=== PATIENT | male | born 1960 | race African-American/Black ===

== ENCOUNTER 2016-10-24 05:55 | Inpatient (IN) | payer BC ==
[2016-10-21 15:43] LABS: BASOPHILS 0.3 %; BASOPHILS ABSOLUTE 0.03 10/3/uL (0.0-0.16); EOSINOPHILS 1.1 %; EOSINOPHILS ABSOLUTE 0.12 10/3/uL (0.0-0.53); HEMATOCRIT 39.7 % (40.0-51.0); HEMOGLOBIN 13.4 g/dL (13.6-17.8); IMMATURE GRANULOCYTES 0.4 %; IMMATURE GRANULOCYTES ABSOLUTE 0.04 10/3/uL (0.0-0.11); LYMPHOCYTES 15.2 %; LYMPHOCYTES ABSOLUTE 1.64 10/3/uL (0.67-4.30); MEAN CORPUS HGB CONC 33.8 g/dL (32.0-36.0); MEAN CORPUSCULAR HEMOGLOB 31.2 pg (26.0-34.0); MEAN CORPUSCULAR VOLUME 92.3 fL (80-100); MONOCYTES 4.6 %; NEUTROPHILS 78.4 %; NEUTROPHILS ABSOLUTE 8.47 10/3/uL (2.02-8.40); PLATELET COUNT 365 10/3/uL (150-400); RBC DISTRIBUTION WIDTH 14.7 % (12.0-16.0); WHITE BLOOD CELLS 10.8 10/3/uL (4.5-10.5)
[2016-10-21 15:45] LABS: MANUAL DIFF NO %
[2016-10-21 15:46] LABS: PARTIAL THROMBO TIME 28.7 SEC (22.5-37.2); PROTIME (NOT ORD) 13.4 SEC (12.0-14.5)
[2016-10-21 16:01] LABS: A/G RATIO 0.9 (0.7-1.9); ALBUMIN 3.9 G/DL (3.5-5.0); CALCIUM, SERUM 9.7 MG/DL (8.5-10.4); CHLORIDE, SERUM 101 MMOL/L (96-112); CO2 (CARBON DIOXIDE) 28 MMOL/L (24-34); CREATININE 1.06 MG/DL (0.70-1.30); GFR AFRICAN AMERICAN 89 ML/MIN (>=60); GFR NON AFRICAN AMERICAN 77 ML/MIN (>=60); GLOBULIN 4.4 G/DL (2.5-4.1); GLUCOSE, SERUM 128 MG/DL (60-99); POTASSIUM, SERUM 3.9 MMOL/L (3.5-5.3); SGOT(AST) 14 U/L (5-40); SGPT(ALT) 46 U/L (5-65); SODIUM, SERUM 137 MMOL/L (135-148); TOTAL BILIRUBIN 0.4 MG/DL (0-1.2); TOTAL PROTEIN 8.3 G/DL (6.0-8.5)
[2016-10-21 16:02] LABS: ALKALINE PHOSPHATASE 106 U/L (45-117); BUN (BLOOD UREA NITROGEN) 17 MG/DL (6-23)
--- NOTE | ~2016-10-24 | PREOPHP ---
PreOp History and Physical [address] [place]. 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 The patient was recently hospitalized for pneumonia. During that hospitalization, he underwent a CT scan of the chest and abdomen, which showed a large gastric mass. Further workup shows this to be a distal gastric GIST tumor. There was no evidence for metastatic disease. This tumor was associated with upper GI bleeding at the time of his admission. The patient comes now for partial gastrectomy for removal of this large gastric GIST tumor. PAST MEDICAL HISTORY: 1. Hypertension. 2. Arthritis. 3. History of sepsis with legionnaire pneumonia. 4. History of upper GI bleeding related GIST tumor. MEDICATIONS: Hydrochlorothiazide, prednisone, amlodipine, Exforge, hydrocodone, hydroxychloroquine. PAST SURGICAL HISTORY: None. FAMILY HISTORY: Positive for diabetes and heart disease. SOCIAL HISTORY: The patient has history of tobacco abuse. He has a history of alcohol use. ALLERGIES: NONE. REVIEW OF SYSTEMS: The patient's 14-point review of systems otherwise unremarkable. OBJECTIVE/PHYSICAL EXAMINATION: GENERAL: This is a large somewhat obese male, in no acute distress. He is alert and oriented x3. VITAL SIGNS: Blood pressure 111/79, pulse 90, temp 97.8. HEENT: Unremarkable. CRANIAL NERVES: 2 through 12 are normal. LUNGS: Clear. CARDIAC: Normal. ABDOMEN: Soft and nontender. EXTREMITIES: Normal. LABORATORY DATA: CT scan of the abdomen and pelvis shows a large perigastric mass. EUS with biopsy shows this to be a gastrointestinal stromal cell tumor. The patient had a lesion of concern in the left lobe of the liver of unclear etiology. CT directed biopsy of this lesion is pending at this time. PreOp History and Physical [address] [place]. [address] NAME: LAURIE VOGEL : 56 STATUS : PRE IN PAT#: [id number] AGE: 56 ADM/REG DATE : MR#: [id number] REPORT SERV DATE: 10/24/16 DICTATED BY: STEPHANIE LEE III DATE: 10/08/16 REPORT STATUS : Draft TRANSCRIBED BY: ROSELYN DATE: 10/08/16 ASSESSMENT: 1. 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 2. Hypertension. 3. Arthritis, steroid dependent. 4. History of sepsis with legionnaires pneumonia. 5. History of previous upper gastrointestinal bleeding. PLAN: The patient comes to the operating room now for partial gastrectomy for removal of this large gastric tumor. This procedure, the risks, benefits, and alternatives, including not limited to the risk for bleeding, infection, enterotomy, injury to abdominal structure, postop small bowel obstruction, ileus, incisional hernia, dehiscence, anastomotic leak, resulting in peritonitis, sepsis, and , duodenal stump leak resulting in peritonitis, sepsis, and , and requiring reoperation, gastric outlet obstruction, gastroparesis, and unforeseen complications including deep venous thrombosis, pulmonary embolus, myocardial infarction, stroke, pneumonia, and , have been fully and completely explained to the patient's family at length on several occasions prior to surgery. The fact that this is a major operation with risk for major morbidity and mortality has been explained. The expected length of recovery has been explained. The patient's questions have been answered. He fully and completely understands the risks and agrees to surgery as planned. ANG/ROSELYN Stephanie Lee III, M.D. / [id number]
--- NOTE | ~2016-10-24 | DS ---
Discharge Summary [facility] [address] [facility] [place]. [address] NAME: LAURIE VOGEL : 56 STATUS : DIS IN PAT#: [id number] AGE: 56 ADM/REG DATE : 10/24/16 MR#: [id number] REPORT SERV DATE: 11/06/16 DICTATED BY: STEPHANIE MOCK III DATE: 11/05/16 REPORT STATUS : Draft TRANSCRIBED BY: ROSELYN DATE: 11/05/16 Data Collection from hospitalization DISCHARGE DIAGNOSIS(ES): 1. 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 2. Hypertension. 3. Arthritis. 4. History of sepsis with Legionnaires pneumonia. CONSULTATIONS: None. PROCEDURES PERFORMED: Partial distal gastrectomy with Billroth II anastomosis, 10/24/2016. PATHOLOGY: , distal gastrectomy; gastrointestinal stromal tumor (GIST). MEDICATIONS: Norvasc 10 mg daily; Exforge 1 daily; hydrochlorothiazide 25 mg daily; Diovan 320 mg daily; prednisone 10 mg every morning; multivitamin without minerals 1 daily; Percocet 7.5/325 mg, one 3 times daily as needed. CONDITION AT DISCHARGE: Upon discharge, he did appear to be doing well and had no complaints. DISPOSITION: He was discharged home to continue a soft post gastrectomy diet with activity as discussed. He is to follow up with me in the office in two weeks and is to call for the appointment. HOSPITAL COURSE: This 56-year-old male was recently hospitalized for pneumonia. During the hospitalization, he underwent a CT scan of the chest and abdomen which showed a large gastric mass. Further workup showed this to be a distal gastric GIST tumor. There was no evidence for metastatic disease. This tumor was associated with upper GI bleeding at the time of his admission. He was now admitted for partial gastrectomy for removal of this large gastric GIST tumor and further evaluation. Upon admission to the hospital, he was then been taken to the operating room where he did undergo the above procedure. He tolerated this well and was transferred to the recovery room. On postop day 1, he was alert and comfortable and had no complaints noted. He did have good pain control and did appear to be stable postoperatively. On postop day 2, he had remained in stable condition and had no complaints. He was still n.p.o. with the NG tube in place. On postop day 3, his NG tube was placed to gravity drain. The So catheter and epidural were both removed. His incision looked good. On postop day 4, his NG tube was removed and he was placed on a clear liquid diet. He was afebrile and his vital signs had remained stable. On postop day 5, he tolerated a clear liquid diet and his diet was advanced further to a full liquid diet. His IV fluids were decreased and [employer] was discontinued. He had been placed on oral pain medications. CONDITION AT DISCHARGE: He did remain in stable condition and as he continued to do well, he was then discharged on 10/30/2016 with the above instructions. Discharge Summary [address] [place]. [address] NAME: LAUIRE VOGEL : 56 STATUS : DIS IN PAT#: [id number] AGE: 56 ADM/REG DATE : 10/24/16 MR#: [id number] REPORT SERV DATE: 11/06/16 DICTATED BY: STEPHANIE MOCK III DATE: 11/05/16 REPORT STATUS : Draft TRANSCRIBED BY: ROSELYN DATE: 11/05/16 Information collected by: [place] [employer] I submit the above information as my discharge summary. PATRICIA/ROSELYN Stephanie Mock III, M.D. / [id number] CC: Austin Schulte III, M.D.
--- NOTE | ~2016-10-24 | OP ---
Record Of Operation [facility] [address] [place]. 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 PROCEDURE: Partial distal gastrectomy with Billroth II anastomosis. SURGEON: Stephanie Mock M.D. ANESTHESIA: General with intubation. COMPLICATIONS: None. ESTIMATED BLOOD LOSS: 50 mL. SPECIMENS: Distal stomach or antrum and pylorus. DRAINS: Kwaku-Smith in abdominal cavity and Tippecanoe in subcutaneous tissue. LAP AND SPONGE COUNT: Correct x3. BRIEF HISTORY: This 56-year-old male was recently diagnosed with a GIST tumor of the distal stomach. This was a very large, exophytic tumor. They have been discovered when the patient has been emergently admitted with evidence for hematemesis. His workup showed a questionable lesion in the left lobe of the liver which was biopsied under CT direction and found to be a benign hemangioma. There was no evidence for disease elsewhere and no evidence for metastatic disease. It was felt that laparotomy with partial gastrectomy was indicated. This procedure, the risks, benefits, and alternatives, including not limited to the risk for bleeding, infection, enterotomy, injury to any abdominal structure, postop small bowel obstruction, ileus, incisional hernia, dehiscence, anastomotic leak resulting in peritonitis, sepsis, and , and requiring reoperation, gastroparesis, gastric bowel obstruction, duodenal stump leak resulting in peritonitis, sepsis, and , and unforeseen complications including deep venous thrombosis, pulmonary embolus, myocardial infarction, stroke, pneumonia, and , were fully and completely explained to the patient and his family carefully prior to surgery. The fact that this was a major operation with risk for major morbidity and mortality was explained as well as expected length of recovery. The patient had questions, which were answered. He fully understood the risks and agreed to the surgery as planned. FINDINGS: The patient had a large GIST tumor of the distal stomach. This was a large exophytic mass that also involved the wall of the stomach. There was no evidence for Record Of Operation [place] [address] [place]. [address] NAME: LAURIE VOGEL : 56 STATUS : ADM IN PAT#: [id number] AGE: 56 ADM/REG DATE : 10/24/16 MR#: [id number] REPORT SERV DATE: 10/24/16 DICTATED BY: STEPHANIE MOCK III DATE: 10/24/16 REPORT STATUS : Draft TRANSCRIBED BY: MODL DATE: 10/24/16 metastatic disease. DESCRIPTION OF PROCEDURE: After being properly identified and after discussing risks of surgery with the patient and his family again in the preoperative area, he was taken to the operating room and placed in the supine position on the operating room table. General anesthesia was administered. He was intubated without difficulty. A So catheter and NG tube were inserted. The abdomen was prepped and draped sterilely in the usual fashion. After an appropriate "time-out" per JCAHO standards, a midline incision was made from just beneath the xiphoid process to above the umbilicus. The incision was continued through the subcutaneous tissue. Hemostasis was controlled with cautery. The incision was continued through the fascia. The abdominal cavity was entered. The abdomen was explored. There was an extremely large, exophytic soft mass arising from the distal antrum. This was not invading any structures. There was a palpable mass associated with this in the wall of the stomach in the antrum. The portion of the tumor which was within the wall of the stomach was fairly large and it was felt that it was too large to allow for a safe wedge resection in the narrow part of the antrum where it was located. It was my judgment that a wedge resection would result in a significant narrowing and possible obstruction of the stomach. For this reason, it was felt that distal gastrectomy would be required for adequate removal of the tumor with clear margins. It should be noted that there was no evidence for peritoneal implants or metastatic disease. In particular, the liver was normal. The stomach was mobilized. Using a Harmonic Scalpel, the gastrocolic ligament was divided, beginning in the midbody of the stomach proximally and continuing distally to just beyond the pylorus. The similar portion of the lesser curve of the stomach was exposed by dividing the lesser omentum along the center and length of the stomach. The stomach was then divided transversely with the CALIN stapler at the junction of the antrum and the body of the stomach, proximal to the tumor. The stomach was then divided distally, distal to the tumor and just beyond the pylorus, with a TA60 stapler. The specimen was thus removed and sent to pathology and interpreted as containing the tumor with clear margins. The duodenal stump was oversewn carefully with interrupted 3-0 silk sutures. This resulted in good inversion of the stump. We then performed end gastric to side jejunal anastomosis in a Billroth II fashion. The proximal jejunum just beyond the ligament of Treitz was identified. This jejunum was brought through a window made in the avascular portion of mesentery to the transverse colon. A two-layer anastomosis was performed. This was done using interrupted 3-0 silk sutures on the outer posterior layer, running 3-0 chromic suture on the inner layer, and interrupted 3- 0 silk sutures on the outer anterior layer. Upon completion of this anastomosis, it was widely patent to palpation. It was not twisted or kinked in any way. It was not under any tension. The lesser curve of the stomach which was not incorporated within the anastomosis was oversewn with interrupted 3-0 silk sutures. Anastomosis was some 4-5 cm in length. The anastomosis was secured to the mesentery of the transverse colon with interrupted 3-0 silk sutures. Great care was taken to make certain that the afferent and efferent limbs were not twisted or kinked in any way. The upper abdominal cavity was irrigated copiously with saline. Hemostasis was assured. Record Of Operation [facility] [address] [facility] [place]. [address] NAME: LAURIE VOGEL : 56 STATUS : ADM IN [facility]#: [id number] AGE: 56 ADM/REG DATE : 10/24/16 MR#: [id number] REPORT SERV DATE: 10/24/16 DICTATED BY: STEPHANIE MOCK III DATE: 10/24/16 REPORT STATUS : Draft TRANSCRIBED BY: MODL DATE: 10/24/16 Evicel fibrin glue was placed over the duodenal stump. A Kwaku-Smith drain was brought through a separate stab wound to the right of the incision and placed near the duodenal stump. The fascia was closed with a running looped #1 PDS suture after assuring hemostasis in all areas. The subcutaneous tissue was closed with running 3-0 chromic suture over a Tippecanoe drain which was brought out through the inferior aspect of the incision. The skin was closed with running subcuticular 4-0 Monocryl stitch. Dressings were applied. Anesthesia was reversed and the patient taken to the recovery room in stable condition. He tolerated the procedure well. His family was informed of the results of surgery. The patient will remain in the hospital for postoperative care. RHJ/MODL Stephanie Mock III, M.D. / [id number] CC: Austin Schulte III, MD Bruce Johnson, M.D.
[~2016-10-24 05:55] MED LIST: EXFORGE PO; HUMIRA PEN SC; HYDROCHLOROT25 MG PO; IRON PO; LEVAQUIN750 MG PO; MULTIVITAMI1 PO; NORCO1 TA2 PO; P10 PO; PLAQ200B PO; TAMIFLU PO
[2016-10-25 06:03] LABS: BASOPHILS 0.1 %; BASOPHILS ABSOLUTE 0.01 10/3/uL (0.0-0.16); EOSINOPHILS 0.1 %; EOSINOPHILS ABSOLUTE 0.01 10/3/uL (0.0-0.53); HEMATOCRIT 35.8 % (40.0-51.0); HEMOGLOBIN 12.1 g/dL (13.6-17.8); IMMATURE GRANULOCYTES 0.2 %; IMMATURE GRANULOCYTES ABSOLUTE 0.03 10/3/uL (0.0-0.11); LYMPHOCYTES 12.3 %; LYMPHOCYTES ABSOLUTE 1.89 10/3/uL (0.67-4.30); MEAN CORPUS HGB CONC 33.8 g/dL (32.0-36.0); MEAN CORPUSCULAR VOLUME 91.8 fL (80-100); MEAN PLATELET VOLUME 9.7 fL (9.2-13.0); MONOCYTES 8.4 %; MONOCYTES ABSOLUTE 1.29 10/3/uL (0.21-1.20); NEUTROPHILS 78.9 %; NEUTROPHILS ABSOLUTE 12.09 10/3/uL (2.02-8.40); PLATELET COUNT 289 10/3/uL (150-400)
[2016-10-25 06:17] LABS: A/G RATIO 0.8 (0.7-1.9); ALBUMIN 3.2 G/DL (3.5-5.0); BUN (BLOOD UREA NITROGEN) 16 MG/DL (6-23); CALCIUM, SERUM 8.8 MG/DL (8.5-10.4); CHLORIDE, SERUM 103 MMOL/L (96-112); CO2 (CARBON DIOXIDE) 26 MMOL/L (24-34); CREATININE 0.95 MG/DL (0.70-1.30); GFR AFRICAN AMERICAN 102 ML/MIN (>=60); GFR NON AFRICAN AMERICAN 88 ML/MIN (>=60); GLOBULIN 4.1 G/DL (2.5-4.1); GLUCOSE, SERUM 134 MG/DL (60-99); POTASSIUM, SERUM 4.2 MMOL/L (3.5-5.3); SGOT(AST) 11 U/L (5-40); SGPT(ALT) 35 U/L (5-65); SODIUM, SERUM 141 MMOL/L (135-148); TOTAL BILIRUBIN 0.4 MG/DL (0-1.2); TOTAL PROTEIN 7.3 G/DL (6.0-8.5)
[2016-10-25 06:20] LABS: MANUAL DIFF NO %; WHITE BLOOD CELLS 15.3 10/3/uL (4.5-10.5)
[2016-10-25 06:21] LABS: ALKALINE PHOSPHATASE 81 U/L (45-117)
[2016-10-26 07:43] LABS: BUN (BLOOD UREA NITROGEN) 15 MG/DL (6-23); CHLORIDE, SERUM 103 MMOL/L (96-112); CO2 (CARBON DIOXIDE) 27 MMOL/L (24-34); CREATININE 1.01 MG/DL (0.70-1.30); GFR AFRICAN AMERICAN 95 ML/MIN (>=60); GFR NON AFRICAN AMERICAN 82 ML/MIN (>=60); GLUCOSE, SERUM 109 MG/DL (60-99); SODIUM, SERUM 140 MMOL/L (135-148)
[2016-10-26 07:44] LABS: BASOPHILS 0.2 %; BASOPHILS ABSOLUTE 0.02 10/3/uL (0.0-0.16); EOSINOPHILS 0.7 %; EOSINOPHILS ABSOLUTE 0.09 10/3/uL (0.0-0.53); HEMATOCRIT 34.9 % (40.0-51.0); HEMOGLOBIN 11.5 g/dL (13.6-17.8); IMMATURE GRANULOCYTES 0.2 %; IMMATURE GRANULOCYTES ABSOLUTE 0.03 10/3/uL (0.0-0.11); LYMPHOCYTES 18.9 %; LYMPHOCYTES ABSOLUTE 2.37 10/3/uL (0.67-4.30); MEAN CORPUSCULAR HEMOGLOB 30.7 pg (26.0-34.0); MEAN CORPUSCULAR VOLUME 93.3 fL (80-100); MEAN PLATELET VOLUME 9.8 fL (9.2-13.0); MONOCYTES 7.9 %; MONOCYTES ABSOLUTE 0.99 10/3/uL (0.21-1.20); NEUTROPHILS 72.1 %; NEUTROPHILS ABSOLUTE 9.02 10/3/uL (2.02-8.40); PLATELET COUNT 264 10/3/uL (150-400); RBC DISTRIBUTION WIDTH 15.3 % (12.0-16.0); RED CELL COUNT 3.74 10/6/uL (4.7-6.1); WHITE BLOOD CELLS 12.5 10/3/uL (4.5-10.5)
[2016-10-26 07:45] LABS: MANUAL DIFF NO %
[2016-10-27 06:26] LABS: BASOPHILS 0.1 %; BASOPHILS ABSOLUTE 0.01 10/3/uL (0.0-0.16); EOSINOPHILS 1.8 %; EOSINOPHILS ABSOLUTE 0.18 10/3/uL (0.0-0.53); HEMATOCRIT 34.8 % (40.0-51.0); HEMOGLOBIN 11.5 g/dL (13.6-17.8); IMMATURE GRANULOCYTES 0.1 %; IMMATURE GRANULOCYTES ABSOLUTE 0.01 10/3/uL (0.0-0.11); LYMPHOCYTES 19.9 %; LYMPHOCYTES ABSOLUTE 1.98 10/3/uL (0.67-4.30); MANUAL DIFF NO %; MEAN CORPUSCULAR HEMOGLOB 30.7 pg (26.0-34.0); MEAN PLATELET VOLUME 10.1 fL (9.2-13.0); NEUTROPHILS 69.1 %; NEUTROPHILS ABSOLUTE 6.88 10/3/uL (2.02-8.40); PLATELET COUNT 282 10/3/uL (150-400); RBC DISTRIBUTION WIDTH 15.1 % (12.0-16.0); RED CELL COUNT 3.74 10/6/uL (4.7-6.1)
[2016-10-27 06:39] LABS: BUN (BLOOD UREA NITROGEN) 16 MG/DL (6-23); CALCIUM, SERUM 9.2 MG/DL (8.5-10.4); CHLORIDE, SERUM 101 MMOL/L (96-112); CO2 (CARBON DIOXIDE) 27 MMOL/L (24-34); CREATININE 0.98 MG/DL (0.70-1.30); GFR AFRICAN AMERICAN 98 ML/MIN (>=60); GFR NON AFRICAN AMERICAN 85 ML/MIN (>=60); GLUCOSE, SERUM 109 MG/DL (60-99); SODIUM, SERUM 139 MMOL/L (135-148)
[2016-10-28 08:18] LABS: HEMATOCRIT 35.4 % (40.0-51.0); HEMOGLOBIN 12.2 g/dL (13.6-17.8); MEAN CORPUS HGB CONC 34.5 g/dL (32.0-36.0); MEAN CORPUSCULAR HEMOGLOB 31.4 pg (26.0-34.0); MEAN CORPUSCULAR VOLUME 91.2 fL (80-100); MEAN PLATELET VOLUME 9.6 fL (9.2-13.0); PLATELET COUNT 289 10/3/uL (150-400); RBC DISTRIBUTION WIDTH 14.5 % (12.0-16.0); RED CELL COUNT 3.88 10/6/uL (4.7-6.1); WHITE BLOOD CELLS 10.8 10/3/uL (4.5-10.5)
[2016-10-28 08:19] LABS: MANUAL DIFF YES %
[2016-10-28 08:36] LABS: BUN (BLOOD UREA NITROGEN) 13 MG/DL (6-23); CHLORIDE, SERUM 101 MMOL/L (96-112); CO2 (CARBON DIOXIDE) 26 MMOL/L (24-34); CREATININE 0.92 MG/DL (0.70-1.30); GFR AFRICAN AMERICAN 106 ML/MIN (>=60); GFR NON AFRICAN AMERICAN 91 ML/MIN (>=60); GLUCOSE, SERUM 113 MG/DL (60-99); SODIUM, SERUM 139 MMOL/L (135-148)
[2016-10-28 08:40] LABS: BAND NEUTROPHILS 4 %; LYMPHOCYTES 24 %; LYMPHOCYTES ABSOLUTE (CALC) 2.59 10/3/uL (0.67-4.30); MONOCYTES 6 %; MONOCYTES ABSOLUTE (CALC) 0.65 10/3/uL (0.21-1.20); NEUTROPHILS ABSOLUTE (CALC) 7.56 10/3/uL (2.02-8.40); PLATELET ESTIMATE ADQ (ADEQUATE); RBC MORPHOLOGY NORM (NORMAL); SEGMENTED NEUTROPHIL (0) 66 %; TOTAL NUCLEATED CELLS 100
[2016-10-29 06:09] LABS: BASOPHILS 0.2 %; BASOPHILS ABSOLUTE 0.02 10/3/uL (0.0-0.16); EOSINOPHILS 2.2 %; EOSINOPHILS ABSOLUTE 0.21 10/3/uL (0.0-0.53); HEMATOCRIT 35.5 % (40.0-51.0); HEMOGLOBIN 12.1 g/dL (13.6-17.8); IMMATURE GRANULOCYTES 0.2 %; IMMATURE GRANULOCYTES ABSOLUTE 0.02 10/3/uL (0.0-0.11); LYMPHOCYTES 22.5 %; LYMPHOCYTES ABSOLUTE 2.18 10/3/uL (0.67-4.30); MEAN CORPUS HGB CONC 34.1 g/dL (32.0-36.0); MEAN CORPUSCULAR HEMOGLOB 31.2 pg (26.0-34.0); MEAN CORPUSCULAR VOLUME 91.5 fL (80-100); MEAN PLATELET VOLUME 9.6 fL (9.2-13.0); MONOCYTES 7.5 %; MONOCYTES ABSOLUTE 0.73 10/3/uL (0.21-1.20); NEUTROPHILS 67.4 %; NEUTROPHILS ABSOLUTE 6.55 10/3/uL (2.02-8.40); PLATELET COUNT 294 10/3/uL (150-400); RBC DISTRIBUTION WIDTH 14.5 % (12.0-16.0); RED CELL COUNT 3.88 10/6/uL (4.7-6.1); WHITE BLOOD CELLS 9.7 10/3/uL (4.5-10.5)
[2016-10-29 06:13] LABS: MANUAL DIFF NO %
[2016-10-29 06:24] LABS: BUN (BLOOD UREA NITROGEN) 13 MG/DL (6-23); CHLORIDE, SERUM 104 MMOL/L (96-112); CO2 (CARBON DIOXIDE) 26 MMOL/L (24-34); CREATININE 0.99 MG/DL (0.70-1.30); GFR AFRICAN AMERICAN 97 ML/MIN (>=60); GFR NON AFRICAN AMERICAN 84 ML/MIN (>=60); GLUCOSE, SERUM 117 MG/DL (60-99); SODIUM, SERUM 139 MMOL/L (135-148)
[2016-10-30] MEDS ORDERED: PERCOCET 7.5/321 TAB PO (07:55)
== END 2016-10-30 12:50 | disposition home or self-care (01) | DRG 982 ==
LOC: SDC/OF 05:55 → PACU 09:56 → 5SO 12:16
PROVIDERS: Surgery
PROC: 0D160ZA Bypass Stomach to Jejunum, Open Approach (ICD-10-PCS; 2016-10-24)
PROC: 00HU33Z Insertion of Infusion Device into Spinal Canal, Percutaneous Approach (ICD-10-PCS; 2016-10-24)
PROC: 0DB60ZZ Excision of Stomach, Open Approach (ICD-10-PCS; principal; 2016-10-24 07:45)
DX: D21.4 Benign neoplasm of connective and other soft tissue of abdomen (principal); K92.2 Gastrointestinal hemorrhage, unspecified; I10 Essential (primary) hypertension; M19.90 Unspecified osteoarthritis, unspecified site; Z79.899 Other long term (current) drug therapy; Z79.52 Long term (current) use of systemic steroids; Z83.3 Family history of diabetes mellitus; Z82.49 Family history of ischemic heart disease and other diseases of the circulatory system; Z87.891 Personal history of nicotine dependence; Z23 Encounter for immunization
CPT/HCPCS: 36415; 71020; 80048; 80053; 85025; 85610; 85730; 86850; 86900; 86901; 88309; 88341; 88342; 90686; 93005; 97161-GP; A9270-GY; C9113; G0008; J0690; J1720; J2250; J2370; J2710; J2930; J3010

== ENCOUNTER 2016-11-01 12:26 | Inpatient (IN) | payer BC ==
--- NOTE | ~2016-11-01 | HP ---
History And Physical [address] [place]. [address] NAME: LAURIE VOGEL : 56 STATUS : ADM IN [facility]#: [id number] AGE: 56 ADM/REG DATE : 11/01/16 MR#: [id number] REPORT SERV DATE: 11/01/16 DICTATED BY: STEPHANIE MOCK III DATE: 11/01/16 REPORT STATUS : Draft TRANSCRIBED BY: MODTelma DATE: 11/01/16 DATE OF ADMISSION: 11/01/2016 CONTINUATION PAST MEDICAL HISTORY: 1. As above. 2. Hypertension. 3. Arthritis, steroid dependent. 4. History of previous sepsis with Legionella pneumonia. PAST SURGICAL HISTORY: None. MEDICATIONS: Hydrochlorothiazide, prednisone, amlodipine, Exforge, hydrocodone, and hydroxychloroquine. FAMILY HISTORY: Positive for diabetes and heart disease. SOCIAL HISTORY: The patient has a history of tobacco abuse. He has a history of alcohol use. ALLERGIES: NONE. REVIEW OF SYSTEMS: The patient's 14-point review of systems is otherwise unremarkable except for inability to urinate, abdominal pain and distention. PHYSICAL EXAMINATION: GENERAL: This is a male who appears acutely ill. He is alert and oriented x3. He is somewhat dyspneic. VITAL SIGNS: Blood pressure 108/59, temperature 98.2, and pulse 120. HEENT: Unremarkable. Cranial nerves II through XII are normal. LUNGS: Remarkable for decreased breath sounds at the bases. ABDOMEN: Distended with some mild tenderness around the incision. EXTREMITIES: Normal. LABORATORY DATA: CT scan and pelvis which I reviewed shows a small amount of fluid around the stomach in the left upper quadrant. I reviewed this with Dr. Gary Guy and Dr. Stephanie Banuelos of Radiology. They both feel this is consistent with the patient's recent gastrectomy with no evidence for anastomotic leak. Nevertheless, these findings of concern to me given the patient's clinical condition. The patient's white blood cell count is 9.7 and hematocrit 38.2. Electrolytes are remarkable for marked elevation of his creatinine at 5.7, which is a marked increase from three days ago on 10/29/2016 at which time his creatinine was 0.9. BUN of 65. History And Physical [address] [place]. [address] NAME: LAURIE VOGEL : 56 STATUS : ADM IN PAT#: [id number] AGE: 56 ADM/REG DATE : 11/01/16 MR#: [id number] REPORT SERV DATE: 11/01/16 DICTATED BY: STEPHANIE MOCK III DATE: 11/01/16 REPORT STATUS : Draft TRANSCRIBED BY: ROSELYN DATE: 11/01/16 ASSESSMENT: 1. A 56-year-old male with evidence for tachycardia and tachypnea, possibly secondary to sepsis. 2. Acute renal insufficiency of unclear etiology. 3. Status post recent distal gastrectomy for a large gastrointestinal stromal tumor, with the patient being discharged home in good condition. 4. Hypotension. 5. Steroid-dependent arthritis. 6. History of previous legionnaires pneumonia. PLAN: The patient appears to be acutely ill with tachypnea and tachycardia and hypotension. I plan to transfer him to the intensive care unit for IV fluids. Even though the perigastric fluid appears to be benign radiographically, I have requested a CT-directed aspiration to rule out possibility of infected fluid. So catheter will be placed and I have asked Dr. Stephanie Morales of Pulmonology to see the patient in consultation for help with his management. Although his abdomen is distended, he does not have definite evidence for peritonitis or indication for acute surgical intervention. However, the patient is acutely ill. I discussed this with the patient and his family. Their questions were answered. They understand and agree to this as planned. RHJ/ROSELYN Stephanie Mock III, M.D. / [id number] CC: Austin Schulte III, M.D.
--- NOTE | ~2016-11-01 | CN ---
Consultation Report [facility] [address] [place] [place]. [address] NAME: LAURIE VOGEL : 56 STATUS : ADM IN PAT#: [id number] AGE: 56 ADM/REG DATE : 11/01/16 MR#: [id number] REPORT SERV DATE: 11/02/16 DICTATED BY: STEPHANIE MORALES DATE: 11/01/16 REPORT STATUS : Draft TRANSCRIBED BY: MODL DATE: 11/01/16 CONSULTATION DATE OF CONSULTATION: One hour critical care time. The patient is a 56-year-old male, one week ago underwent surgery for a GIST tumor in the abdomen, returns today after visiting his doctor's office with appearance of sepsis and possible fluid collection in the abdomen. CT did not reveal perforation, but did reveal fluid collection. Of note, his creatinine has increased to 5 since this hospital stay. His blood pressure is 95/70, he is getting fluid resuscitation as we speak. A CT scan also showed right lower lobe consolidation and left upper lobe atelectasis and fluid collection, left lower quadrant. PAST MEDICAL HISTORY: Hypertension, rheumatoid arthritis, recent influenza A, chronic pain and anemia. The rest of the history, upper GI bleed related to GIST tumor 08/03/2016, reason history of Legionella pneumonia with sepsis, history of atrial flutter associated with influenza A, acute kidney injury at that time, history of mild rhabdomyolysis resolved. REVIEW OF SYSTEMS: As noted above. Otherwise, negative and noncontributory. FAMILY HISTORY: Noncontributory. PHYSICAL EXAMINATION: VITAL SIGNS: On examination, today his pressure is 85/70, pulse is approximately 100, temperature 99. GENERAL: The patient is awake, alert, but feels weak. HEENT: Head is normocephalic. Sclerae and conjunctivae are clear. NECK: Supple. CHEST: Decreased breath sounds. No wheezing or rhonchi. CARDIAC: S1, S2. Tachycardia. I could not hear any murmurs. ABDOMEN: Dressed, very tender. EXTREMITIES: Pulses are palpable. Poor capillary refill. There is significant increase in blood pressure on leg tilt. NEUROLOGIC: Cranial nerves 2 through 12 are intact. Deep tendon reflexes appear to be normal. EKG shows sinus tachycardia. LABORATORY DATA: Shows sodium 130, potassium 5.0, chloride 96, CO2 18, BUN 65, creatinine 5.71, blood sugar 144, H and H 12 and 38, 9007 white count, 337,000 platelets, calcium 9.0, albumin 2.0. Consultation Report [address] [place]. [address] NAME: LAURIE VOGEL : 56 STATUS : ADM IN [facility]#: [id number] AGE: 56 ADM/REG DATE : 11/01/16 MR#: [id number] REPORT SERV DATE: 11/02/16 DICTATED BY: STEPHANIE MORALES DATE: 11/01/16 REPORT STATUS : Draft TRANSCRIBED BY: ROSELYN DATE: 11/01/16 IMPRESSION: 1. Sepsis and probably septic shock. 2. Steroid dependent. 3. History of hypertension. 4. Rheumatoid disease. 5. Anemia. 6. Acute kidney injury. PLAN: Aspiration of fluid collection, stress-dose steroids, continue antibiotic therapy. Discussed with family. We will place central line and the patient may need intubation. RP/ROSELYN Stephanie Morales M.D. / [phone] CC: Austin Schulte III, M.D.
--- NOTE | ~2016-11-01 | OP ---
Record Of Operation [facility] [address] [place]. [address] NAME: LAURIE VOGEL : 56 STATUS : ADM IN [facility]#: [id number] AGE: 56 ADM/REG DATE : 11/01/16 MR#: [id number] REPORT SERV DATE: 11/04/16 DICTATED BY: STEPHANIE MORALES DATE: 11/01/16 REPORT STATUS : Draft TRANSCRIBED BY: MODL DATE: 11/01/16 DATE OF PROCEDURE: PROCEDURE: Placement of right internal jugular venous line. INDICATION: For access, emergent. DESCRIPTION OF PROCEDURE: Informed consent was obtained from family. The risks, benefits of procedure. Time-out done. Trendelenburg position. ChloraPrep scrub. Xylocaine 1%. Ultrasound-guided right IJ entered with seeker needle. Catheter placed over guidewire via modified Seldinger technique to [address] Sterile techniques throughout confirmed by saline, echo, no pneumothorax by echo. RP/ROSELYN Stephanie Morales M.D. / [id number] CC: Austin Schulte III, M.D.
--- NOTE | ~2016-11-01 | CN ---
Consultation Report [facility] [address] [place]. [address] NAME: LAURIE HUDSON : 56 STATUS : ADM IN [facility]#: [id number] AGE: 56 ADM/REG DATE : 11/01/16 MR#: [id number] REPORT SERV DATE: 11/01/16 DICTATED BY: ARNOL MOSQUEDA DATE: 11/01/16 REPORT STATUS : Draft TRANSCRIBED BY: MODL DATE: 11/01/16 NEPHROLOGY CONSULTATION. DATE OF CONSULTATION: HISTORY OF PRESENT ILLNESS: Mr. 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 He had a Billroth II anastomosis and today called his doctor said he was not feeling well, went by to see Dr. Lee and was admitted directly to the floor. After CT scan revealed some fluid collection in the left upper quadrant. He was in acute renal failure and had a new left lower lobe consolidation and probable pneumonia. I was consulted for management of his acute kidney injury. 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 SOCIAL HISTORY: Strong tobacco history. Drinks socially, but no drug. He is . at bedside. FAMILY HISTORY: Positive for coronary artery disease, hypertension, and strokes. ALLERGIES: NO KNOWN DRUG ALLERGIES. MEDICATIONS AT HOME: Home Medications are Exforge, multivitamins, hydrochlorothiazide, prednisone, oxycodone. REVIEW OF SYSTEMS: His abdomen has developed a pressure two days ago and severe pain. No appetite. Basically n.p.o. for the last several days. Shortness of breath started yesterday. He called Dr. Lee today, went to see him and was admitted. He has had intermittent fevers, diarrhea. No vomiting, but has been nauseated. PHYSICAL EXAMINATION: VITAL SIGNS: Here reveals a blood pressure of 101/55, heart rate of 128, respirations 22, temperature 98 degrees. GENERAL: Alert and following commands, but respiratory effort is increased. HEENT: Otherwise, unremarkable. Dry mucous membranes. NECK: No lymphadenopathy appreciated. CHEST: Clear with shallow respirations. CARDIOVASCULAR: Without rub. ABDOMEN: Distended. Tender diffusely. He has a large midline incision. EXTREMITIES: No edema. Good pulses, bounding. NEUROLOGICAL: Intact. Consultation Report [place] [address]. [address] NAME: LAURIE HUDSON : 56 STATUS : ADM IN PAT#: [id number] AGE: 56 ADM/REG DATE : 11/01/16 MR#: [id number] REPORT SERV DATE: 11/01/16 DICTATED BY: ARNOL MOSQUEDA DATE: 11/01/16 REPORT STATUS : Draft TRANSCRIBED BY: MODL DATE: 11/01/16 SKIN: No rash. LABORATORY DATA: Lab shows sodium of 138, potassium 5.0, chloride 98, CO2 18 with a BUN of 65, creatinine 5.7, blood sugar 144, calcium 9.0, and albumin 2.7. Normal liver enzymes as above. 9.7, hematocrit 38, hemoglobin 12, and platelet count 337,000. His CT scan was read out earlier as showing right lower lobe consolidation much improved, but new consolidation left lower lobe and atelectasis of the left upper lobe with calcific atherosclerotic including coronary arteries in his chest. His abdomen showed upper abdominal surgical changes consistent with history of partial distal gastrectomy with Billroth II anastomosis, minimal residual free intraperitoneal air, but fluid in the left upper quadrant, adjacent to the spleen and in the left pericolic gutter along with minimal collection of fluid and gas in the right upper quadrant. His kidneys showed no hydronephrosis, renal calcifications, or gross renal masses. ASSESSMENT: 1. Sepsis, suspect a leaking gastric suture line. Recent GIST tumor resected on 10/24 with Billroth II anastomosis at that time. Blood cultures have not been drawn. I would ask blood cultures be drawn before antibiotics given. 2. Steroid dependent. We will give a bolus of Solu-Medrol and continue Solu-Medrol q.8 h. afterwards. 3. History of hypertension, currently hypotensive and tachycardic. 4. Rheumatoid arthritis, immunosuppressed. 5. Anemia. 6. Acute kidney injury thought to be secondary to poor renal perfusion. Baseline creatinine was less than 1 on 10/29. I suspect this is in part secondary to sepsis, but also dehydration and third-spacing of fluid in his belly. 7. Respiratory insufficiency. We will check a blood gas. PLAN: IV steroid. Bolus of fluid. I have called Dr. Morales, velocity shooter and warned him about impending transfer to ICU and I broaden his coverage from Zosyn alone to Vanco and Zosyn and is getting an aspiration of the fluid in his left pericolic gutter to see if it is infection or just fluid. Depending on the cultures, may need to add antifungal agents also. CARMEN/ROSELYN Arnol Mosqueda M.D. / [id number] CC: Andrea Lee III, M.D. Consultation Report [address] [address] NAME: LAURIE HUDSON : 56 STATUS : ADM IN PAT#: [id number] AGE: 56 ADM/REG DATE : 11/01/16 MR#: [id number] REPORT SERV DATE: 11/01/16 DICTATED BY: ARNOL MOSQUEDA DATE: 11/01/16 REPORT STATUS : Draft TRANSCRIBED BY: ROSELYN DATE: 11/01/16 Giovanni Palacios M.D.
--- NOTE | ~2016-11-01 | CN ---
Consultation Report [facility] [address] [place]. [address] NAME: LAURIE VOGEL : 56 STATUS : ADM IN [facility]#: [id number] AGE: 56 ADM/REG DATE : 11/01/16 MR#: [id number] REPORT SERV DATE: 11/21/16 DICTATED BY: PAOLO CERVANTES DATE: 11/21/16 REPORT STATUS : Draft TRANSCRIBED BY: ROSELYN DATE: 11/21/16 MEDICAL CONSULTATION NOTE DATE OF CONSULTATION: 11/21/2016 REASON FOR CONSULTATION: Hypertension. HISTORY OF PRESENT ILLNESS: This is a 56-year-old black male, who had an anastomotic leak with peritonitis and sepsis, had surgery. His surgical course was complicated by ATN and renal failure, metabolic acidosis. He has rheumatoid arthritis. He has been on prednisone at home. He is now in the latter postoperative period, he is beginning to take clear liquid nourishment and had been on TPN in the past. He still has multiple drains in there, beginning to be removed. He remains on antibiotics Merrem 500 mg IV q.6 hours and vancomycin 1 g every 12. He is back on his baseline prednisone of 10 mg p.o. daily. His blood pressure has been elevated. Dr. Whitlock gave him a dose of hydralazine at 6:30 hours this morning. Blood pressure yesterday 182/97, today 189/99 and 187/100. The patient is asymptomatic and he is feeling better. He feels like he is improving. He complains that he has been in the hospital a long time. PAST MEDICAL HISTORY: He has not been in the hospital prior to these hospitalizations for this GIST, gastrointestinal stromal tumor and the anastomotic leak. MEDICATIONS: His home medications include the following: Hydrochlorothiazide 25 mg p.o. daily; Exforge 10/320 p.o. daily; prednisone 10 mg p.o. daily; Percocet 7.5/325 three times a day as needed for pain; and multivitamin one a day. ALLERGIES: NONE ARE KNOWN. HE IS FOLLOWED PREVIOUSLY BY DR. DORIS SHETH. SOCIAL HISTORY: He has been 36 years. Worked at [employer]. He quit smoking cigarettes one year ago when he had Legionnaires pneumonia. He has three children who are alive and well. He attends [employer] and would like to return there soon. FAMILY HISTORY: There is no history of GIST in his family. He does have hypertension that Consultation Report [address] [place]. [address] NAME: LAURIE VOGEL : 56 STATUS : ADM IN PAT#: [id number] AGE: 56 ADM/REG DATE : 11/01/16 MR#: [id number] REPORT SERV DATE: 11/21/16 DICTATED BY: PAOLO CERVANTES DATE: 11/21/16 REPORT STATUS : Draft TRANSCRIBED BY: ROSELYN DATE: 11/21/16 runs in the family. REVIEW OF SYSTEMS: He has had some recent pneumonia, had a gastrectomy for the tumor initially 10/24/2016. He does have acute kidney failure with ATN, now resolved, rheumatoid arthritis. He had a hemigastrectomy. He had elevated cholesterol previously, hypertension longstanding. There was a history of atrial flutter in the past. He has been in no other hospital besides [facility] previously, he was in good shape prior to that with weight over 200 pounds. He has had no recent fever, chills, night sweats, headache, or loss of vision. No flank pain, hematuria, hemoptysis, fever, chills, night sweats, or swelling in the lower extremities. No CABG. The remainder of the review of systems is negative. PHYSICAL EXAMINATION: VITAL SIGNS: Blood pressure as above, heart rate 86, and respiratory rate 18, afebrile. HEENT: EOMI. Sclerae clear. Conjunctivae pink. NECK: No bruit without any JVD. CHEST: Clear to A and P. HEART: Regular S1, S2 without murmur, gallop, or click. ABDOMEN: Has an abdominal binder. There are numerous wounds and wound drains seen on the anterior abdominal wall. EXTREMITIES: Have trace edema. Distal pulses are intact, dorsalis pedis and posterior tibial. NEUROLOGIC: He withdraws to plantar stimulation. Environmental Protection Specialist is symmetric bilaterally. Coordination is intact. There is no tremor. LABORATORY DATA: His creatinine is down to 0.93 with a sodium of 143, potassium 3.9, CO2 was 25, hemoglobin 7.3, hematocrit 22.2, and platelet count is 418. INR is 1.4. CURRENT MEDICATIONS: Include hydrochlorothiazide, pantoprazole, micafungin, and the prednisone. ASSESSMENT: 1. Hypertension. The patient has longstanding history of essential hypertension. He has been taken off his Exforge. His hydrochlorothiazide has been continued throughout the hospitalization. We are going to go ahead and restart amlodipine half the dose at 5 mg p.o. daily and for the valsartan and the Exforge, start 80 mg p.o. daily. Watch the BMP. If the creatinine rises, I would like to back off the valsartan and choose another agent. 2. Acute tubular necrosis resolved. 3. Metabolic acidosis from sepsis resolved. 4. Rheumatoid arthritis. 5. Protein calorie malnutrition, previously on TPN, now taking clear liquids. We will see how this progresses. 6. History of Legionella pneumonia. He believes it was in November of 2015 when he stopped Consultation Report [address] [place]. [address] NAME: LAURIE VOGEL : 56 STATUS : ADM IN [facility]#: [id number] AGE: 56 ADM/REG DATE : 11/01/16 MR#: [id number] REPORT SERV DATE: 11/21/16 DICTATED BY: PAOLO CERVANTES DATE: 11/21/16 REPORT STATUS : Draft TRANSCRIBED BY: ROSELYN DATE: 11/21/16 smoking. 7. Gastrointestinal stromal tumor producing need for gastrectomy or at least need for partial gastrectomy. PLAN: Outlined above with starting the valsartan and amlodipine. Continuing the hydrochlorothiazide. We will check a BMP in the morning. NAIF/ROSELYN Paolo Cervantes M.D. / [id number] CC: Austin Schulte III, M.D. Austin Templeton M.D. Stuart G Ginther, M.D. Mark Anderson, M.D.
--- NOTE | ~2016-11-01 | HP ---
History And Physical [place] [place]. [address] NAME: LAURIE VOGEL : 56 STATUS : ADM IN [facility]#: [id number] AGE: 56 ADM/REG DATE : 11/01/16 MR#: [id number] REPORT SERV DATE: 11/01/16 DICTATED BY: STEPHANIE LEE III DATE: 11/01/16 REPORT STATUS : Draft TRANSCRIBED BY: ROSELYN DATE: 11/01/16 DATE OF ADMISSION: 11/01/2016 HISTORY OF PRESENT ILLNESS: This 56-year-old male was admitted to the hospital emergently from my office with abdominal pain, hypotension, and renal failure. The patient is approximately eight days status post distal gastrectomy, which was performed for a giant GIST tumor. The patient's postoperative course was uneventful. At the time of discharge, about two days ago, he was tolerating the diet well with normal bowel function. No fever or chills. The patient states that yesterday he began having diffuse abdominal pain associated with weakness and anorexia and inability to urinate. He has had no fever or chills. The patient presented to my office today and appeared to be acutely ill. He appeared to be hypotensive with tachycardia. The patient complains of lower abdominal pain. He has no chest pain. He has had no nausea or vomiting. He has had no fever or chills. He states his bowels have been moving normally. PAST MEDICAL HISTORY: 1. History of giant GIST tumor, status post distal gastrectomy performed on 10/24/2016. The patient's postoperative course was uneventful. At time of discharge, he was afebrile and tolerating a diet well with normal bowel function. His creatinine was normal at that time. His final pathology showed a large GIST tumor, 11 cm in size, low grade, with negative lymph node. 2. History of upper GI bleeding related to the GIST tumor necessitating emergent admission to the hospital on 08/03/2016. 3. History of recent legionnaires pneumonia with sepsis. 4. History of atrial flutter associated with influenza A. 5. Acute kidney injury at that time, resolved. 6. History of mild rhabdomyolysis at that time, resolved. DICTATION ENDS HERE ANG/ROSELYN Stephanie Lee III, M.D. / [id number] CC: Austin Schulte III, M.D.
--- NOTE | ~2016-11-01 | OP ---
Record Of Operation [facility] [address] [place]. [address] NAME: LAURIE VOGEL : 56 STATUS : ADM IN [facility]#: [id number] AGE: 56 ADM/REG DATE : 11/01/16 MR#: [id number] REPORT SERV DATE: 11/05/16 DICTATED BY: STEPHANIE MOCK III DATE: 11/04/16 REPORT STATUS : Draft TRANSCRIBED BY: MODTelma DATE: 11/04/16 DATE OF PROCEDURE: 11/02/2016 PREOPERATIVE DIAGNOSES: Sepsis, associated with acute surgical abdomen, acute renal insufficiency, steroid-dependent arthritis, recent distal gastrectomy for giant gastrointestinal stromal tumor, history of Legionnaires pneumonia. POSTOPERATIVE DIAGNOSES: Duodenal stump leak with peritonitis, sepsis, acute renal insufficiency, steroid-dependent rheumatoid arthritis, recent distal gastrectomy for gastrointestinal stromal tumor, hypertension, and recent Legionnaires pneumonia. PROCEDURES: Laparotomy, closure of duodenal stump, placement of lateral duodenostomy tube, drainage of abdominal cavity, and Ric Patch closure of duodenal stump. SURGEON: Stephanie Mock M.D. ANESTHESIA: General with intubation. COMPLICATIONS: None. ESTIMATED BLOOD LOSS: 50 mL. SPECIMENS: Cultures from abdominal cavity. DRAINS: #14-Mauritian T-Tube and duodenal and Kwaku-Smith in abdominal cavity and Kenmare in the subcutaneous tissue. LAP AND SPONGE COUNT: Correct x3. BRIEF HISTORY: This 56-year-old male was admitted to the hospital emergently with evidence for sepsis and probable peritonitis. The patient is about eight days out from a partial gastrectomy with Billroth II anastomosis, which had been performed for a giant, 11 cm GIST cell tumor. The patient had been discharged home in good condition about six days after surgery. At the time of discharge, he was afebrile and tolerating diet well with normal bowel function and no abdominal pain. The patient presented on the day of admission with severe abdominal pain associated with evidence for sepsis, peritonitis, and acute renal insufficiency. He had undergone CT- directed drainage of the left upper quadrant fluid collection, which was not diagnostic. It was felt that laparotomy was indicated in the setting of sepsis and probable peritonitis. This procedure, the risks, benefits, and alternatives, including but not limited to the risk for bleeding, infection, enterotomy, injury to any abdominal structure, postop small bowel obstruction, ileus, incisional hernia, dehiscence, anastomotic leak, prolonged ventilator dependency, continued sepsis, possible need for further surgery, and unforeseen Record Of Operation [address] [place]. [address] NAME: LAURIE VOGEL : 56 STATUS : ADM IN PAT#: [id number] AGE: 56 ADM/REG DATE : 11/01/16 MR#: [id number] REPORT SERV DATE: 11/05/16 DICTATED BY: STEPHANIE MOCK III DATE: 11/04/16 REPORT STATUS : Draft TRANSCRIBED BY: MODTelma DATE: 11/04/16 complications including deep venous thrombosis, pulmonary embolus, myocardial infarction, stroke, pneumonia, and , were fully and completely explained to the patient's family at length prior to surgery. The fact that this was a major operation with risk for major morbidity and mortality in this setting was explained. In fact that without surgery, the patient's chance for survival was markedly diminished or perhaps nil was explained. The patient and family had questions, which were answered. They understood the risks and agreed to the surgery as planned. FINDINGS: The patient had a small pinpoint opening in his duodenal stump. This stump had been closed with the stapling device and oversewn with interrupted 3-0 silk sutures and inverted, in a two-layered closure either with yasir or sutures. In spite of this, the superior corner of the stump had a small pinpoint opening, which was leaking bile and pancreatic juice. There has peritonitis associated with this. The anastomosis itself was intact with no evidence for obstruction or leakage. No other problems or abnormalities were identified. DESCRIPTION OF PROCEDURE: After being properly identified and after discussing risks of surgery with the patient's family again in the preoperative area, he was taken to the operating room and placed in the supine position on the operating room table. General anesthesia was administered and he was intubated without difficulty. The abdomen was prepped and draped sterilely in the usual fashion. After an appropriate "time-out" per JCAHO standards, the midline incision was reopened. The skin had already healed. The incision was continued through the skin and subcutaneous tissue. Hemostasis was controlled with cautery. The incision was continued through the fascia. The abdominal cavity was entered. There was a large amount of bilious material in the upper abdomen. The entire abdominal cavity was irrigated copiously. All the bilious material was aspirated dry. Cultures were obtained. The anastomosis was inspected. It was noted to be tight and in good position with no evidence for leakage. The afferent and efferent limbs were normal with no evidence for obstruction. We continued our inspection and found that there was a small pinpoint opening in the superior aspect of the duodenal stump, which was leaking bile. This was clearly the source of the patient's sepsis. The tissues around the duodenal stump and the head of the pancreas were inflamed. We contemplated whether further mobilization of the duodenal stump would be warranted, but to do so it was felt to place the common bile duct at risk, which was within the area. The intraoperative fluoroscopy was performed. A small [place] catheter was placed through the small pinpoint opening in the duodenal stump. Fluoroscopy was performed. This confirmed that the contrast entered the duodenal stump and that there was no evidence of injury to the bile duct. The catheter was removed. The duodenal stump was then carefully closed with interrupted with 3-0 silk sutures. The tissue was very frail and very fragile. The posterior wall consisted of the pancreas, which was very fragile. We placed a 14-Mauritian T-Tube in the lateral aspect of the duodenum after performing generous Sumaya maneuver. This was placed through a 2-0 silk pursestring along the lateral wall of the duodenum. This was brought out through the lateral wall of the abdominal cavity. Record Of Operation [facility] [address] [place]. [address] NAME: LAURIE VOGEL : 56 STATUS : ADM IN [facility]#: [id number] AGE: 56 ADM/REG DATE : 11/01/16 MR#: [id number] REPORT SERV DATE: 11/05/16 DICTATED BY: STEPHANIE MOCK III DATE: 11/04/16 REPORT STATUS : Draft TRANSCRIBED BY: MODL DATE: 11/04/16 Evicel glue was then placed over the closed duodenal stump. A portion of the omentum was placed over this as well in a Ric patch-type repair and secured in place with 3-0 silk sutures. The entire abdominal cavity was irrigated copiously with saline. Hemostasis was assured. A Kwaku-Smith drain was brought through a separate stab wound and placed in the right upper quadrant. Hemostasis was meticulously assured in all areas. The fascia was closed with a running looped #1 PDS suture. The subcutaneous tissue was closed with running 3-0 chromic suture over a Kenmare drain, which was brought through the inferior aspect of the incision. The skin was closed with skin yasir and a wound VAC was placed over this. The patient was taken directly to the intensive care unit in stable condition. He tolerated the procedure well. His family was informed of results of surgery. ANG/ROSELYN Stephanie Mock III, M.D. / [id number] CC: Austin Schulte III, M.D.
--- NOTE | ~2016-11-01 | HP ---
History And Physical [place] [id number] [facility] [place]. [address] NAME: LAURIE VOGEL : 56 STATUS : [facility] [id number] AGE: 56 ADM/REG DATE : 11/01/16 MR#: [id number] REPORT SERV DATE: 11/02/16 DICTATED BY: STEPHANIE MOCK III DATE: 11/02/16 REPORT STATUS : Draft TRANSCRIBED BY: MODTelma DATE: 11/02/16 DATE OF ADMISSION: 11/01/2016 ADDENDUM: The patient remained stable in intensive care unit, although hypotensive requiring pressor agents. He underwent CT-directed drainage of his upper abdominal fluid collections during the night per Dr. Stephanie Banuelos. I reviewed this with Dr. Banuelos. He had a large fluid collection along the left gutter. Dr. Banuelos drained this, but a drain was not left in place. He noted that the fluid was somewhat cloudy. He noted that the fluid reaccumulated after it was drained. The patient feels much better this morning. His urine output has increased and his creatinine has decreased. However, he continues to have abdominal tenderness and I believe he has evidence for continued sepsis. Based on this, I feel that laparotomy is indicated. I have explained the patient's family that I feel complete drainage of this upper abdominal fluid collection is indicated. I suspect this may be related to an anastomotic leak or related to his gastrojejunostomy and if so this will be repaired if identified. This procedure, i.e. laparotomy, the risks, benefits, and alternatives, including but not limited to the risk for bleeding, infection, enterotomy, injury to abdominal structure, postop small bowel obstruction, ileus, incisional hernia, dehiscence, further leakage requiring further surgery, possible need for prolonged ventilator dependency, and unforeseen complications including deep venous thrombosis, pulmonary embolus, myocardial infarction, stroke, pneumonia and , have been fully and completely explained to the patient and his family. The fact this is a major operation with risk for major morbidity and mortality, in an attempt to save the patient's life and that this is a life-threatening situation has been explained. The patient and family had questions, which were answered. They understand the risks and agreed to surgery as planned. ANG/ROSELYN Stephanie Mock III, M.D. / [id number] CC: Austin Schulte III, M.D.
--- NOTE | ~2016-11-01 | CN ---
Consultation Report [facility] [address] [place]. [address] NAME: LAURIE VOGEL : 56 STATUS : ADM IN [facility]#: [id number] AGE: 56 ADM/REG DATE : 11/01/16 MR#: [id number] REPORT SERV DATE: 11/11/16 DICTATED BY: RANDY AGUILAR DATE: 11/09/16 REPORT STATUS : Draft TRANSCRIBED BY: MODL DATE: 11/09/16 INFECTIOUS DISEASE CONSULT DATE OF CONSULTATION: REASON FOR REFERRAL: Evaluation and treatment of postoperative wound infection and sepsis. HISTORY OF PRESENT ILLNESS: The patient is a 56-year-old male. 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 He was on 10 mg a day at the time of this admission. He was treated with Humira for a couple of treatments in 2015, but developed Legionella pneumonitis in the fall of 2015, and Humira has not been resumed after that. He has been managed successfully so far with prednisone alone. He also has a giant GIST tumor and was admitted for elective surgery for that on 10/[address] Lee. He underwent a partial distal gastrectomy with a Billroth II anastomosis. He received appropriate preoperative antibiotics. He recovered well from the surgery and was eating and doing well at the time of his discharge several days later. On 11/01, he developed abrupt onset of severe abdominal pain, chill-like sensation, nausea, came in and was found to be hypotensive and septic-appearing. A CT scan of the abdomen was performed emergently and that revealed a fluid collection in the left pericolic gutter. He also had another left upper quadrant fluid collection that appeared to be more of an abscess. CT-guided drainage was done at the same time. He was started empirically on vancomycin and Zosyn. Subsequent cultures of that grew Enterococcus just in the broth only and abundant Enterobacter aerogenes that was parker-sensitive. He continued though to appear septic, so Dr. Lee took him to surgery on the for a washout of that and also repair of a leaking duodenal stump that was found at surgery. Cultures from that grew the same thing. He was continued on the vancomycin and Zosyn. He had no more fever. White blood cell count remained high. A repeat CT scan was done on the 29th that revealed a persistent fluid collection that was aspirated. At this time, the Enterobacter alone of the bacteria grew, but had showed development of resistance to most beta lactams including Zosyn. It also did grow some yeast, still to be identified. So, two days ago, the vancomycin was discontinued. Since no Gram-positives grew yesterday, the Zosyn was stopped and meropenem was added. He had also been started on micafungin on 11/03, and he has continued on that. He feels much better. His NG tube has been removed. He has been able to start clear liquids without difficulty. He had acute renal failure when he came in as part of his sepsis picture and that appears to be resolving. He still has drains in place. White blood cell count does remain high, but in a differential pattern that suggest that it is a steroid effect. He does remain on stress-dose steroids. He overall does appear to be improving. He has had though a very extremely complicated hospital stay and review of the records for that took approximately 30 minutes in addition to the usual consult time. PAST MEDICAL HISTORY: Otherwise unremarkable. MEDICATIONS: He is now on meropenem and micafungin. Consultation Report [facility] [id number] [facility] [place]. [address] NAME: LAURIE VOGEL : 56 STATUS : ADM IN [facility]#: [id number] AGE: 56 ADM/REG DATE : 11/01/16 MR#: [id number] REPORT SERV DATE: 11/11/16 DICTATED BY: RANDY AGUILAR DATE: 11/09/16 REPORT STATUS : Draft TRANSCRIBED BY: ROSELYN DATE: 11/09/16 ALLERGIES: HE HAS NO KNOWN ANTIMICROBIAL ALLERGIES. SOCIAL HISTORY: He was previously living independently. He is . He has a long history of smoking and has smoked right up to the time of this admission. No history of alcohol or substance abuse. He works in a local industry. FAMILY HISTORY: Noncontributory. PHYSICAL EXAMINATION: GENERAL: A nontoxic adult -[place] male, in no acute distress. He is alert and oriented x3. VITAL SIGNS: His temperature at present is 97.6; it has not been elevated since shortly after admission and after his procedures on 11/02. His present pulse is 94, respirations 16, blood pressure 145/79, and his weight is 92 kg. HEENT: Sclerae are clear. There are no oropharyngeal lesions. NECK: Supple without lymphadenopathy or meningeal signs. LUNGS: Clear anteriorly. HEART: Regular rate and rhythm. ABDOMEN: Soft. There is mild tenderness without guarding or rebound. His midline incision looks good without warmth, redness, drainage and the drain sites look okay in the left abdomen. EXTREMITIES: Without clubbing, cyanosis, or edema. No swollen, red, or hot joints. No skin lesions or rashes. IV sites show no signs of inflammation in the upper extremities and chest. No rashes noted. LABORATORY DATA: His white blood cell count when he left the hospital from his prior surgery on 10/29 was 9.7; it was 9.7 when he first appeared on the , but quickly zaki up to 12.2, was 16.8 on the , 23.4 on the and has remained high since then. It was up to 25.2 on the , but 23.7 yesterday, not checked today. Yesterday's hematocrit was 27.4, platelets 324. The differential in the last few days has been 80%-90% segs. He did have a bandemia as high as 68% bands when he first came in, but only 2% bands on the white count yesterday. His procalcitonin was 73.33 when first checked on 11/05, is 6.14 today. BUN 57, creatinine 1.86, is high; the first creatinine on 11/01 was 6.59. IMPRESSION: A postoperative duodenal stump leak following very complicated resection of a large tumor and Billroth II anastomosis. This led to peritonitis, intraabdominal abscess with expected gastrointestinal jhony. Unfortunately, Gram-negative rods became resistant while on therapy probably because of persistent fluid collection, which was drained three days ago. He now seems to be steadily getting better and all the organisms, that have been isolated, would be covered by his present regimen, as well as his anaerobes, which we would assume to be there based on the etiology of this. RECOMMENDATIONS: 1. Agree with meropenem and micafungin for now. Consultation Report [facility] [address] [facility] [address] NAME: VOGELAURYLAURIE DOLORES : 56 STATUS : ADM IN [facility]#: [id number] AGE: 56 ADM/REG DATE : 11/01/16 MR#: [id number] REPORT SERV DATE: 11/11/16 DICTATED BY: RANDY AGUILAR DATE: 11/09/16 REPORT STATUS : Draft TRANSCRIBED BY: ROSELYN DATE: 11/09/16 2. At this point, we will plan on at least seven more days of both these agents, but that will depend on how his white blood cell count is progressing and also the procalcitonin. Finally, I will follow the patient with you. Recheck white blood cell count again tomorrow. I appreciate very much your consulting on this patient. JAMI/ROSELYN Randy Aguilar M.D. / [id number] CC: Austin Schulte III, M.D.
[~2016-11-01 12:26] MED LIST changes: +PERCOCET 7.5/321 TAB PO
[2016-11-01 14:02] LABS: CHLORIDE, SERUM 96 MMOL/L (96-112); SGOT(AST) 17 U/L (5-40); SGPT(ALT) 17 U/L (5-65); TOTAL PROTEIN 8.2 G/DL (6.0-8.5)
[2016-11-01 14:03] LABS: HEMATOCRIT 38.2 % (40.0-51.0); HEMOGLOBIN 12.8 g/dL (13.6-17.8); MANUAL DIFF YES %; MEAN CORPUS HGB CONC 33.5 g/dL (32.0-36.0); MEAN CORPUSCULAR VOLUME 92.5 fL (80-100); MEAN PLATELET VOLUME 10.4 fL (9.2-13.0); PLATELET COUNT 337 10/3/uL (150-400); RBC DISTRIBUTION WIDTH 15.3 % (12.0-16.0); RED CELL COUNT 4.13 10/6/uL (4.7-6.1); WHITE BLOOD CELLS 9.7 10/3/uL (4.5-10.5)
[2016-11-01 14:03] LABS: SODIUM, SERUM 130 MMOL/L (135-148)
[2016-11-01 14:04] LABS: ALKALINE PHOSPHATASE 103 U/L (45-117); BUN (BLOOD UREA NITROGEN) 65 MG/DL (6-23); CO2 (CARBON DIOXIDE) 18 MMOL/L (24-34); CREATININE 5.71 MG/DL (0.70-1.30); GFR AFRICAN AMERICAN 12 ML/MIN (>=60); GFR NON AFRICAN AMERICAN 10 ML/MIN (>=60); GLUCOSE, SERUM 144 MG/DL (60-99); TOTAL BILIRUBIN 1.9 MG/DL (0-1.2)
[2016-11-01 14:07] LABS: BAND NEUTROPHILS 2 %; LYMPHOCYTES 13 %; LYMPHOCYTES ABSOLUTE (CALC) 1.26 10/3/uL (0.67-4.30); MONOCYTES 5 %; MONOCYTES ABSOLUTE (CALC) 0.49 10/3/uL (0.21-1.20); NEUTROPHILS ABSOLUTE (CALC) 7.95 10/3/uL (2.02-8.40); PLATELET ESTIMATE ADQ (ADEQUATE); RBC MORPHOLOGY NORM (NORMAL); SEGMENTED NEUTROPHIL (0) 80 %; TOTAL NUCLEATED CELLS 100
[2016-11-01 14:17] LABS: A/G RATIO 0.5 (0.7-1.9); ALBUMIN 2.7 G/DL (3.5-5.0); GLOBULIN 5.5 G/DL (2.5-4.1)
[2016-11-01 16:14] LABS: D-DIMER QUANTITATIVE 12.77 ug/mLFEU (< 0.50)
[2016-11-01 19:00] LABS: ALKALINE PHOSPHATASE 103 U/L (45-117); CALCIUM, SERUM 9.1 MG/DL (8.5-10.4); CHLORIDE, SERUM 97 MMOL/L (96-112); CO2 (CARBON DIOXIDE) 17 MMOL/L (24-34); POTASSIUM, SERUM 5.5 MMOL/L (3.5-5.3); SGOT(AST) 19 U/L (5-40); SGPT(ALT) 19 U/L (5-65); SODIUM, SERUM 134 MMOL/L (135-148); TOTAL PROTEIN 8.1 G/DL (6.0-8.5)
[2016-11-01 19:01] LABS: INTERNATIONAL NORMAL RATI 1.6 UNITS (-); PARTIAL THROMBO TIME 23.3 SEC (22.5-37.2)
[2016-11-01 19:07] LABS: PROTIME (NOT ORD) 19.3 SEC (12.0-14.5)
[2016-11-01 19:10] LABS: A/G RATIO 0.5 (0.7-1.9); ALBUMIN 2.6 G/DL (3.5-5.0); BUN (BLOOD UREA NITROGEN) 71 MG/DL (6-23); CREATININE 6.59 MG/DL (0.70-1.30); GFR AFRICAN AMERICAN 10 ML/MIN (>=60); GFR NON AFRICAN AMERICAN 8 ML/MIN (>=60); GLOBULIN 5.5 G/DL (2.5-4.1); GLUCOSE, SERUM 113 MG/DL (60-99); PHOSPHORUS, SERUM 7.4 MG/DL (2.5-4.5)
[2016-11-01 19:11] LABS: HEMATOCRIT 40.2 % (40.0-51.0); HEMOGLOBIN 13.4 g/dL (13.6-17.8); MEAN CORPUS HGB CONC 33.3 g/dL (32.0-36.0); MEAN CORPUSCULAR HEMOGLOB 30.2 pg (26.0-34.0); MEAN CORPUSCULAR VOLUME 90.7 fL (80-100); MEAN PLATELET VOLUME 10.8 fL (9.2-13.0); PLATELET COUNT 334 10/3/uL (150-400); RBC DISTRIBUTION WIDTH 15.5 % (12.0-16.0); RED CELL COUNT 4.43 10/6/uL (4.7-6.1); WHITE BLOOD CELLS 9.7 10/3/uL (4.5-10.5)
[2016-11-01 19:13] LABS: MANUAL DIFF YES %
[2016-11-01 19:32] LABS: BAND NEUTROPHILS 35 %; BASOPHILS 1 %; LYMPHOCYTES 9 %; LYMPHOCYTES ABSOLUTE (CALC) 0.87 10/3/uL (0.67-4.30); METAMYELOCYTES 4 %; MONOCYTES 7 %; MONOCYTES ABSOLUTE (CALC) 0.68 10/3/uL (0.21-1.20); MYELOCYTES 30 %; NEUTROPHILS ABSOLUTE (CALC) 4.66 10/3/uL (2.02-8.40); PROMYELOCYTES 1 % (0); SEGMENTED NEUTROPHIL (0) 13 %; TOTAL NUCLEATED CELLS 100
[2016-11-01 19:34] LABS: ACANTHOCYTES OCC (0-2/OIF); BURR CELLS 1+ (3-10/OIF) (0-2/OIF)
[2016-11-01 19:35] LABS: TEARDROP SHAPED RBCS FEW (3-10/OIF)
[2016-11-01 19:35] LABS: BE (BASE EXCESS) -10.3 MEQ/L (0 +/- 2.5); CARBOXYHEMOGLOBIN 0.5 % (0-3); DEVICE NC; HCO3 (ACTUAL BICARBONATE) 13.7 MEQ/L (23-27); HEMOBLOGIN CONTENT 12.7 G/DL (14-18); INSTRUMENT SERIAL # 8083; METHEMOGLOBIN 0.4 % (0-3); O2 CONTENT 16.1 VOL% (18-24); PCO2 (CO2 TENSION) 26 MMHG (35-45); PO2 (O2 TENSION) 65 MMHG (79-93); SAMPLE Arterial; pH 7.35 (7.37-7.43)
[2016-11-01 19:36] LABS: PATH REVIEW YES
[2016-11-01 23:57] LABS: MEAN CORPUS HGB CONC 33.9 g/dL (32.0-36.0); MEAN CORPUSCULAR HEMOGLOB 30.3 pg (26.0-34.0); MEAN CORPUSCULAR VOLUME 89.4 fL (80-100); MEAN PLATELET VOLUME 10.2 fL (9.2-13.0); PLATELET COUNT 285 10/3/uL (150-400); RBC DISTRIBUTION WIDTH 15.4 % (12.0-16.0); WHITE BLOOD CELLS 9.9 10/3/uL (4.5-10.5)
[2016-11-01 23:58] LABS: HEMOGLOBIN 10.6 g/dL (13.6-17.8)
[2016-11-01 23:59] LABS: HEMATOCRIT 31.3 % (40.0-51.0); MANUAL DIFF YES %
[2016-11-02 00:04] LABS: ALBUMIN 2.7 G/DL (3.5-5.0); BUN (BLOOD UREA NITROGEN) 69 MG/DL (6-23); CHLORIDE, SERUM 101 MMOL/L (96-112); CO2 (CARBON DIOXIDE) 18 MMOL/L (24-34); POTASSIUM, SERUM 5.1 MMOL/L (3.5-5.3); SODIUM, SERUM 135 MMOL/L (135-148)
[2016-11-02 00:10] LABS: CALCIUM, SERUM 7.8 MG/DL (8.5-10.4); CREATININE 5.61 MG/DL (0.70-1.30); GFR AFRICAN AMERICAN 12 ML/MIN (>=60); GFR NON AFRICAN AMERICAN 10 ML/MIN (>=60); GLUCOSE, SERUM 151 MG/DL (60-99); PHOSPHORUS, SERUM 4.9 MG/DL (2.5-4.5)
[2016-11-02 00:41] LABS: EOSINOPHILS 1 %; IMMATURE GRANS ABSOLUTE (CALC) 0.89 10/3/uL (0.0-0.11); LYMPHOCYTES 4 %; METAMYELOCYTES 9 %; NEUTROPHILS ABSOLUTE (CALC) 8.51 10/3/uL (2.02-8.40); SEGMENTED NEUTROPHIL (0) 18 %; TOTAL NUCLEATED CELLS 100
[2016-11-02 00:42] LABS: PLATELET ESTIMATE ADQ (ADEQUATE); TOXIC GRANULATION 1+
[2016-11-02 00:43] LABS: RBC MORPHOLOGY NORM (NORMAL); VACUOLATED NEUTROPHILES FEW
[2016-11-02 01:03] LABS: BAND NEUTROPHILS 68 %
[2016-11-02 03:36] LABS: AMYLASE BODY FLUID 2348 U/L; AMYLASE BODY FLUID 2786 U/L
[2016-11-02 03:59] LABS: ALLENS TEST Pos; BE (BASE EXCESS) -7.8 MEQ/L (0 +/- 2.5); CARBOXYHEMOGLOBIN 0.3 % (0-3); DEVICE HFNC; HCO3 (ACTUAL BICARBONATE) 17.5 MEQ/L (23-27); HEMOBLOGIN CONTENT 11.2 G/DL (14-18); INSTRUMENT SERIAL # 35151; METHEMOGLOBIN 0.6 % (0-3); O2 CONTENT 14.4 VOL% (18-24); OPERATOR ID 31061; PCO2 (CO2 TENSION) 35 MMHG (35-45); PO2 (O2 TENSION) 70 MMHG (79-93); SAMPLE Arterial; pH 7.32 (7.37-7.43)
[2016-11-02 04:52] LABS: BASOPHILS 0.1 %; BASOPHILS ABSOLUTE 0.01 10/3/uL (0.0-0.16); EOSINOPHILS 0 %; HEMATOCRIT 31.5 % (40.0-51.0); HEMOGLOBIN 10.7 g/dL (13.6-17.8); IMMATURE GRANULOCYTES 0.3 %; IMMATURE GRANULOCYTES ABSOLUTE 0.03 10/3/uL (0.0-0.11); LYMPHOCYTES 2.7 %; LYMPHOCYTES ABSOLUTE 0.27 10/3/uL (0.67-4.30); MEAN CORPUSCULAR HEMOGLOB 30.4 pg (26.0-34.0); MEAN CORPUSCULAR VOLUME 89.5 fL (80-100); MEAN PLATELET VOLUME 10.1 fL (9.2-13.0); MONOCYTES 5.8 %; MONOCYTES ABSOLUTE 0.57 10/3/uL (0.21-1.20); NEUTROPHILS 91.1 %; NEUTROPHILS ABSOLUTE 8.96 10/3/uL (2.02-8.40); PLATELET COUNT 306 10/3/uL (150-400); RBC DISTRIBUTION WIDTH 15.6 % (12.0-16.0); RED CELL COUNT 3.52 10/6/uL (4.7-6.1); WHITE BLOOD CELLS 9.8 10/3/uL (4.5-10.5)
[2016-11-02 04:58] LABS: MANUAL DIFF NO %
[2016-11-02 05:04] LABS: BD FL SOURCE (NOT ORD) LEFT UPPER QUAD; BD FL SOURCE (NOT ORD) PARACOLIC GUTTER; BD FL SOURCE (NOT ORD) POSTERIOR GASTRIC
[2016-11-02 05:12] LABS: A/G RATIO 0.9 (0.7-1.9); ALBUMIN 3.5 G/DL (3.5-5.0); ALKALINE PHOSPHATASE 65 U/L (45-117); BUN (BLOOD UREA NITROGEN) 64 MG/DL (6-23); CALCIUM, SERUM 8.1 MG/DL (8.5-10.4); CHLORIDE, SERUM 100 MMOL/L (96-112); CO2 (CARBON DIOXIDE) 19 MMOL/L (24-34); CREATININE 4.89 MG/DL (0.70-1.30); GFR AFRICAN AMERICAN 14 ML/MIN (>=60); GFR NON AFRICAN AMERICAN 12 ML/MIN (>=60); GLUCOSE, SERUM 188 MG/DL (60-99); POTASSIUM, SERUM 5.5 MMOL/L (3.5-5.3); SGOT(AST) 27 U/L (5-40); SGPT(ALT) 14 U/L (5-65); SODIUM, SERUM 133 MMOL/L (135-148); TOTAL BILIRUBIN 2.8 MG/DL (0-1.2); TOTAL PROTEIN 7.5 G/DL (6.0-8.5)
[2016-11-02 05:49] LABS: BAND NEUTROPHILS 51 %; IMMATURE GRANS ABSOLUTE (CALC) 1.37 10/3/uL (0.0-0.11); LYMPHOCYTES 3 %; LYMPHOCYTES ABSOLUTE (CALC) 0.29 10/3/uL (0.67-4.30); METAMYELOCYTES 14 %; MONOCYTES 5 %; MONOCYTES ABSOLUTE (CALC) 0.49 10/3/uL (0.21-1.20); NEUTROPHILS ABSOLUTE (CALC) 7.64 10/3/uL (2.02-8.40); PLATELET ESTIMATE ADQ (ADEQUATE); RBC MORPHOLOGY NORM (NORMAL); SEGMENTED NEUTROPHIL (0) 27 %; TOTAL NUCLEATED CELLS 100
[2016-11-02 08:26] LABS: AMYLASE BODY FLUID 18450 U/L
[2016-11-02 11:39] LABS: PARTIAL THROMBO TIME 43.5 SEC (22.5-37.2)
[2016-11-02 11:40] LABS: PROTIME (NOT ORD) 22.6 SEC (12.0-14.5)
[2016-11-02 15:42] LABS: BE (BASE EXCESS) -1.2 MEQ/L (0 +/- 2.5); CARBOXYHEMOGLOBIN 0.1 % (0-3); HCO3 (ACTUAL BICARBONATE) 25.3 MEQ/L (23-27); HEMOBLOGIN CONTENT 10.8 G/DL (14-18); INSTRUMENT SERIAL # 8083; METHEMOGLOBIN 0.4 % (0-3); O2 CONTENT 15.3 VOL% (18-24); PCO2 (CO2 TENSION) 50 MMHG (35-45); PO2 (O2 TENSION) 157 MMHG (79-93); SAMPLE Arterial; TIDAL VOLUME 600 ML; pH 7.32 (7.37-7.43)
[2016-11-03 01:47] LABS: CARBOXYHEMOGLOBIN 0.1 % (0-3); HCO3 (ACTUAL BICARBONATE) 25.3 MEQ/L (23-27); INSTRUMENT SERIAL # 8083; METHEMOGLOBIN 0.3 % (0-3); PCO2 (CO2 TENSION) 34 MMHG (35-45); PO2 (O2 TENSION) 75 MMHG (79-93); pH 7.49 (7.37-7.43)
[2016-11-03 01:48] LABS: DEVICE NC; HEMOBLOGIN CONTENT 9.3 G/DL (14-18); O2 CONTENT 12.5 VOL% (18-24); OPERATOR ID 13415; SAMPLE Arterial
[2016-11-03 04:45] LABS: MEAN CORPUS HGB CONC 34.7 g/dL (32.0-36.0); MEAN CORPUSCULAR HEMOGLOB 30.4 pg (26.0-34.0); MEAN CORPUSCULAR VOLUME 87.5 fL (80-100); MEAN PLATELET VOLUME 9.2 fL (9.2-13.0); PLATELET COUNT 240 10/3/uL (150-400); RBC DISTRIBUTION WIDTH 15.5 % (12.0-16.0); WHITE BLOOD CELLS 9.3 10/3/uL (4.5-10.5)
[2016-11-03 04:46] LABS: HEMATOCRIT 24.5 % (40.0-51.0); HEMOGLOBIN 8.5 g/dL (13.6-17.8); MANUAL DIFF YES %
[2016-11-03 04:53] LABS: INTERNATIONAL NORMAL RATI 1.7 UNITS (-)
[2016-11-03 04:58] LABS: FIBRINOGEN 1101 MG/DL (230-462)
[2016-11-03 05:04] LABS: ALBUMIN 3.5 G/DL (3.5-5.0); BUN (BLOOD UREA NITROGEN) 63 MG/DL (6-23); CALCIUM, SERUM 8.2 MG/DL (8.5-10.4); CHLORIDE, SERUM 104 MMOL/L (96-112)
[2016-11-03 05:06] LABS: CO2 (CARBON DIOXIDE) 25 MMOL/L (24-34); CREATININE 3.68 MG/DL (0.70-1.30); GFR AFRICAN AMERICAN 20 ML/MIN (>=60); GFR NON AFRICAN AMERICAN 17 ML/MIN (>=60); GLUCOSE, SERUM 139 MG/DL (60-99); PHOSPHORUS, SERUM 6.1 MG/DL (2.5-4.5); SODIUM, SERUM 141 MMOL/L (135-148)
[2016-11-03 05:25] LABS: BAND NEUTROPHILS 38 %; IMMATURE GRANS ABSOLUTE (CALC) 0.09 10/3/uL (0.0-0.11); LYMPHOCYTES 3 %; LYMPHOCYTES ABSOLUTE (CALC) 0.28 10/3/uL (0.67-4.30); METAMYELOCYTES 1 %; MONOCYTES 6 %; MONOCYTES ABSOLUTE (CALC) 0.56 10/3/uL (0.21-1.20); NEUTROPHILS ABSOLUTE (CALC) 8.37 10/3/uL (2.02-8.40); PLATELET ESTIMATE ADQ (ADEQUATE); SEGMENTED NEUTROPHIL (0) 52 %; TEARDROP SHAPED RBCS OCC (0-2/OIF); TOTAL NUCLEATED CELLS 100
[2016-11-03 12:05] LABS: HEMATOCRIT 25.1 % (40.0-51.0); HEMOGLOBIN 8.7 g/dL (13.6-17.8)
[2016-11-03 16:05] LABS: PREALBUMIN 8.4 MG/DL (17.0-43.0); TRIGLYCERIDE 413 MG/DL (< 150)
[2016-11-03 16:30] LABS: HEMATOCRIT 26.9 % (40.0-51.0); HEMOGLOBIN 9.3 g/dL (13.6-17.8)
[2016-11-04 04:54] LABS: HEMOGLOBIN 8.6 g/dL (13.6-17.8); MANUAL DIFF YES %; MEAN CORPUS HGB CONC 34.4 g/dL (32.0-36.0); MEAN CORPUSCULAR HEMOGLOB 30.5 pg (26.0-34.0); MEAN CORPUSCULAR VOLUME 88.7 fL (80-100); MEAN PLATELET VOLUME 9.2 fL (9.2-13.0); PLATELET COUNT 252 10/3/uL (150-400); RBC DISTRIBUTION WIDTH 15.4 % (12.0-16.0); RED CELL COUNT 2.82 10/6/uL (4.7-6.1); WHITE BLOOD CELLS 12.2 10/3/uL (4.5-10.5)
[2016-11-04 04:57] LABS: INTERNATIONAL NORMAL RATI 1.4 UNITS (-); PROTIME (NOT ORD) 17.2 SEC (12.0-14.5)
[2016-11-04 05:12] LABS: ALKALINE PHOSPHATASE 63 U/L (45-117); CALCIUM, SERUM 8.8 MG/DL (8.5-10.4); CHLORIDE, SERUM 110 MMOL/L (96-112); CO2 (CARBON DIOXIDE) 24 MMOL/L (24-34); CREATININE 3.94 MG/DL (0.70-1.30); GFR AFRICAN AMERICAN 18 ML/MIN (>=60); GFR NON AFRICAN AMERICAN 16 ML/MIN (>=60); POTASSIUM, SERUM 3.9 MMOL/L (3.5-5.3); PREALBUMIN 7.4 MG/DL (17.0-43.0); SGOT(AST) 27 U/L (5-40); SGPT(ALT) 22 U/L (5-65); TRIGLYCERIDE 515 MG/DL (< 150)
[2016-11-04 05:15] LABS: A/G RATIO 0.6 (0.7-1.9); ALBUMIN 2.7 G/DL (3.5-5.0); BUN (BLOOD UREA NITROGEN) 83 MG/DL (6-23); GLOBULIN 4.3 G/DL (2.5-4.1); GLUCOSE, SERUM 167 MG/DL (60-99); PHOSPHORUS, SERUM 4.5 MG/DL (2.5-4.5); SODIUM, SERUM 148 MMOL/L (135-148); TOTAL BILIRUBIN 1.1 MG/DL (0-1.2)
[2016-11-04 05:33] LABS: BAND NEUTROPHILS 30 %; LYMPHOCYTES 4 %; LYMPHOCYTES ABSOLUTE (CALC) 0.49 10/3/uL (0.67-4.30); MONOCYTES 7 %; MONOCYTES ABSOLUTE (CALC) 0.85 10/3/uL (0.21-1.20); NEUTROPHILS ABSOLUTE (CALC) 10.86 10/3/uL (2.02-8.40); PLATELET ESTIMATE ADQ (ADEQUATE); SEGMENTED NEUTROPHIL (0) 59 %; TEARDROP SHAPED RBCS OCC (0-2/OIF); TOTAL NUCLEATED CELLS 100
[2016-11-04 09:49] LABS: WBC (NOT ORDERED) (RFLEX) 0 (0-5)
[2016-11-04 10:21] LABS: ASCORBIC ACID (UR NOT ORDER) NEG (NEG); BILIRUBIN, URINE NEGATIVE (NEG); KETONE, URINE NEGATIVE (NEG); LEUKOCYTE ESTERASE(NOT OR NEG (NEG)
[2016-11-05 04:35] LABS: HEMOGLOBIN 8.9 g/dL (13.6-17.8); MEAN CORPUSCULAR HEMOGLOB 30.3 pg (26.0-34.0); MEAN PLATELET VOLUME 9.9 fL (9.2-13.0); PLATELET COUNT 286 10/3/uL (150-400); RBC DISTRIBUTION WIDTH 16.2 % (12.0-16.0); RED CELL COUNT 2.94 10/6/uL (4.7-6.1); WHITE BLOOD CELLS 16.8 10/3/uL (4.5-10.5)
[2016-11-05 04:37] LABS: MANUAL DIFF YES %; MEAN CORPUSCULAR VOLUME 91.8 fL (80-100)
[2016-11-05 04:52] LABS: ALBUMIN 2.5 G/DL (3.5-5.0); CALCIUM, SERUM 9.1 MG/DL (8.5-10.4); CHLORIDE, SERUM 115 MMOL/L (96-112); CO2 (CARBON DIOXIDE) 22 MMOL/L (24-34); CREATININE 4.03 MG/DL (0.70-1.30); GFR AFRICAN AMERICAN 18 ML/MIN (>=60); GFR NON AFRICAN AMERICAN 15 ML/MIN (>=60); GLUCOSE, SERUM 167 MG/DL (60-99); PHOSPHORUS, SERUM 3.7 MG/DL (2.5-4.5); POTASSIUM, SERUM 3.8 MMOL/L (3.5-5.3); SODIUM, SERUM 151 MMOL/L (135-148); TRIGLYCERIDE 407 MG/DL (< 150)
[2016-11-05 04:55] LABS: BUN (BLOOD UREA NITROGEN) 105 MG/DL (6-23)
[2016-11-05 05:13] LABS: BAND NEUTROPHILS 24 %; IMMATURE GRANS ABSOLUTE (CALC) 0.17 10/3/uL (0.0-0.11); LYMPHOCYTES 12 %; LYMPHOCYTES ABSOLUTE (CALC) 2.02 10/3/uL (0.67-4.30); METAMYELOCYTES 1 %; MONOCYTES 3 %; NEUTROPHILS ABSOLUTE (CALC) 14.11 10/3/uL (2.02-8.40); PLATELET ESTIMATE ADQ (ADEQUATE); SEGMENTED NEUTROPHIL (0) 60 %; SPHEROCYTES OCC (0-2/OIF); TOTAL NUCLEATED CELLS 100; VACUOLATED NEUTROPHILES OCC
[2016-11-05 05:14] LABS: TARGET CELLS OCC (1-2/OIF) (0-1/OIF)
[2016-11-05 06:23] LABS: PROCALCITONIN 73.33 ng/mL (<0.5)
[2016-11-05 19:14] LABS: CALCIUM, SERUM 9.2 MG/DL (8.5-10.4); CHLORIDE, SERUM 119 MMOL/L (96-112); CO2 (CARBON DIOXIDE) 22 MMOL/L (24-34); CREATININE 3.66 MG/DL (0.70-1.30); GFR AFRICAN AMERICAN 20 ML/MIN (>=60); GFR NON AFRICAN AMERICAN 17 ML/MIN (>=60); GLUCOSE, SERUM 146 MG/DL (60-99); SODIUM, SERUM 154 MMOL/L (135-148)
[2016-11-05 19:17] LABS: BUN (BLOOD UREA NITROGEN) 112 MG/DL (6-23); POTASSIUM, SERUM 4.7 MMOL/L (3.5-5.3)
[2016-11-06 04:40] LABS: HEMATOCRIT 28.6 % (40.0-51.0); HEMOGLOBIN 9.4 g/dL (13.6-17.8); MEAN CORPUS HGB CONC 32.9 g/dL (32.0-36.0); MEAN CORPUSCULAR HEMOGLOB 30.1 pg (26.0-34.0); MEAN CORPUSCULAR VOLUME 91.7 fL (80-100); MEAN PLATELET VOLUME 9.7 fL (9.2-13.0); PLATELET COUNT 292 10/3/uL (150-400); RBC DISTRIBUTION WIDTH 16.3 % (12.0-16.0); RED CELL COUNT 3.12 10/6/uL (4.7-6.1); WHITE BLOOD CELLS 23.4 10/3/uL (4.5-10.5)
[2016-11-06 04:41] LABS: INTERNATIONAL NORMAL RATI 1.4 UNITS (-); PROTIME (NOT ORD) 16.6 SEC (12.0-14.5)
[2016-11-06 04:45] LABS: MANUAL DIFF YES %
[2016-11-06 04:46] LABS: A/G RATIO 0.5 (0.7-1.9); ALBUMIN 2.3 G/DL (3.5-5.0); CALCIUM, SERUM 8.9 MG/DL (8.5-10.4); CHLORIDE, SERUM 118 MMOL/L (96-112); CO2 (CARBON DIOXIDE) 21 MMOL/L (24-34); CREATININE 3.55 MG/DL (0.70-1.30); GFR AFRICAN AMERICAN 21 ML/MIN (>=60); GFR NON AFRICAN AMERICAN 18 ML/MIN (>=60); GLOBULIN 4.7 G/DL (2.5-4.1); PHOSPHORUS, SERUM 3.3 MG/DL (2.5-4.5); SGOT(AST) 12 U/L (5-40); SGPT(ALT) 14 U/L (5-65); SODIUM, SERUM 153 MMOL/L (135-148)
[2016-11-06 04:47] LABS: ALKALINE PHOSPHATASE 98 U/L (45-117); BUN (BLOOD UREA NITROGEN) 106 MG/DL (6-23); GLUCOSE, SERUM 179 MG/DL (60-99); POTASSIUM, SERUM 3.6 MMOL/L (3.5-5.3); TRIGLYCERIDE 273 MG/DL (< 150)
[2016-11-06 05:09] LABS: PROCALCITONIN 40.24 ng/mL (<0.5)
[2016-11-06 05:10] LABS: BAND NEUTROPHILS 9 %; LYMPHOCYTES 8 %; LYMPHOCYTES ABSOLUTE (CALC) 1.87 10/3/uL (0.67-4.30); MONOCYTES 8 %; MONOCYTES ABSOLUTE (CALC) 1.87 10/3/uL (0.21-1.20); NEUTROPHILS ABSOLUTE (CALC) 19.66 10/3/uL (2.02-8.40); SEGMENTED NEUTROPHIL (0) 75 %; TOTAL NUCLEATED CELLS 100
[2016-11-06 05:11] LABS: PLATELET ESTIMATE ADQ (ADEQUATE); RBC MORPHOLOGY NORM (NORMAL)
[2016-11-06 17:34] LABS: CALCIUM, SERUM 9.1 MG/DL (8.5-10.4); CHLORIDE, SERUM 118 MMOL/L (96-112); CO2 (CARBON DIOXIDE) 18 MMOL/L (24-34); CREATININE 3.18 MG/DL (0.70-1.30); GFR AFRICAN AMERICAN 24 ML/MIN (>=60); GFR NON AFRICAN AMERICAN 20 ML/MIN (>=60); GLUCOSE, SERUM 151 MG/DL (60-99); POTASSIUM, SERUM 4.3 MMOL/L (3.5-5.3); SODIUM, SERUM 149 MMOL/L (135-148)
[2016-11-06 17:37] LABS: BUN (BLOOD UREA NITROGEN) 97 MG/DL (6-23)
[2016-11-06 17:38] LABS: BASOPHILS 1.2 %; BASOPHILS ABSOLUTE 0.28 10/3/uL (0.0-0.16); EOSINOPHILS 0 %; EOSINOPHILS ABSOLUTE 0.01 10/3/uL (0.0-0.53); HEMATOCRIT 29.5 % (40.0-51.0); HEMOGLOBIN 9.5 g/dL (13.6-17.8); IMMATURE GRANULOCYTES 2.6 %; IMMATURE GRANULOCYTES ABSOLUTE 0.62 10/3/uL (0.0-0.11); LYMPHOCYTES 10.6 %; MEAN CORPUS HGB CONC 32.2 g/dL (32.0-36.0); MEAN CORPUSCULAR HEMOGLOB 29.8 pg (26.0-34.0); MEAN CORPUSCULAR VOLUME 92.5 fL (80-100); MEAN PLATELET VOLUME 10.3 fL (9.2-13.0); MONOCYTES 3.5 %; MONOCYTES ABSOLUTE 0.82 10/3/uL (0.21-1.20); NEUTROPHILS 82.1 %; NEUTROPHILS ABSOLUTE 19.43 10/3/uL (2.02-8.40); PLATELET COUNT 308 10/3/uL (150-400); RBC DISTRIBUTION WIDTH 17.1 % (12.0-16.0); RED CELL COUNT 3.19 10/6/uL (4.7-6.1); WHITE BLOOD CELLS 23.7 10/3/uL (4.5-10.5)
[2016-11-06 17:50] LABS: MANUAL DIFF NO %
[2016-11-06 18:07] LABS: ANISOCYTOSIS 1+ (5-10/OIF) (0-5/OIF); BAND NEUTROPHILS 36 %; IMMATURE GRANS ABSOLUTE (CALC) 0.71 10/3/uL (0.0-0.11); LYMPHOCYTES 6 %; LYMPHOCYTES ABSOLUTE (CALC) 1.42 10/3/uL (0.67-4.30); METAMYELOCYTES 3 %; MONOCYTES 2 %; MONOCYTES ABSOLUTE (CALC) 0.47 10/3/uL (0.21-1.20); NEUTROPHILS ABSOLUTE (CALC) 21.09 10/3/uL (2.02-8.40); SEGMENTED NEUTROPHIL (0) 53 %; TOTAL NUCLEATED CELLS 100; TOXIC GRANULATION 2+
[2016-11-06 18:08] LABS: PLATELET ESTIMATE ADQ (ADEQUATE)
[2016-11-07 04:45] LABS: HEMATOCRIT 28.7 % (40.0-51.0); HEMOGLOBIN 9.5 g/dL (13.6-17.8); MEAN CORPUS HGB CONC 33.1 g/dL (32.0-36.0); MEAN CORPUSCULAR HEMOGLOB 30.2 pg (26.0-34.0); MEAN CORPUSCULAR VOLUME 91.1 fL (80-100); PLATELET COUNT 305 10/3/uL (150-400); RBC DISTRIBUTION WIDTH 16.3 % (12.0-16.0); RED CELL COUNT 3.15 10/6/uL (4.7-6.1)
[2016-11-07 04:47] LABS: MANUAL DIFF YES %; WHITE BLOOD CELLS 25.2 10/3/uL (4.5-10.5)
[2016-11-07 04:49] LABS: A/G RATIO 0.4 (0.7-1.9); ALBUMIN 2.1 G/DL (3.5-5.0); ALKALINE PHOSPHATASE 93 U/L (45-117); CALCIUM, SERUM 8.7 MG/DL (8.5-10.4); CHLORIDE, SERUM 118 MMOL/L (96-112); CO2 (CARBON DIOXIDE) 20 MMOL/L (24-34); CREATININE 2.94 MG/DL (0.70-1.30); GFR AFRICAN AMERICAN 26 ML/MIN (>=60); GFR NON AFRICAN AMERICAN 22 ML/MIN (>=60); GLOBULIN 4.9 G/DL (2.5-4.1); GLUCOSE, SERUM 162 MG/DL (60-99); POTASSIUM, SERUM 3.9 MMOL/L (3.5-5.3); SGPT(ALT) 17 U/L (5-65); SODIUM, SERUM 152 MMOL/L (135-148)
[2016-11-07 04:51] LABS: BUN (BLOOD UREA NITROGEN) 89 MG/DL (6-23); SGOT(AST) 18 U/L (5-40); TOTAL BILIRUBIN 1.5 MG/DL (0-1.2)
[2016-11-07 05:35] LABS: BAND NEUTROPHILS 11 %; IMMATURE GRANS ABSOLUTE (CALC) 1.01 10/3/uL (0.0-0.11); LYMPHOCYTES 5 %; LYMPHOCYTES ABSOLUTE (CALC) 1.26 10/3/uL (0.67-4.30); METAMYELOCYTES 4 %; NEUTROPHILS ABSOLUTE (CALC) 22.93 10/3/uL (2.02-8.40); SEGMENTED NEUTROPHIL (0) 80 %; TOTAL NUCLEATED CELLS 100
[2016-11-07 05:36] LABS: GIANT PLATELET OCC; PLATELET ESTIMATE ADQ (ADEQUATE)
[2016-11-07 06:48] LABS: PROCALCITONIN 20.64 ng/mL (<0.5)
[2016-11-07 10:42] LABS: TRIGLYCERIDE 111 MG/DL (< 150)
[2016-11-08 04:55] LABS: BASOPHILS 0.2 %; BASOPHILS ABSOLUTE 0.05 10/3/uL (0.0-0.16); EOSINOPHILS 0 %; HEMATOCRIT 27.4 % (40.0-51.0); HEMOGLOBIN 8.9 g/dL (13.6-17.8); IMMATURE GRANULOCYTES 2.2 %; IMMATURE GRANULOCYTES ABSOLUTE 0.51 10/3/uL (0.0-0.11); LYMPHOCYTES 4.1 %; LYMPHOCYTES ABSOLUTE 0.98 10/3/uL (0.67-4.30); MEAN CORPUS HGB CONC 32.5 g/dL (32.0-36.0); MEAN CORPUSCULAR HEMOGLOB 29.5 pg (26.0-34.0); MEAN CORPUSCULAR VOLUME 90.7 fL (80-100); MEAN PLATELET VOLUME 10.2 fL (9.2-13.0); MONOCYTES 3.7 %; MONOCYTES ABSOLUTE 0.88 10/3/uL (0.21-1.20); NEUTROPHILS 89.8 %; PLATELET COUNT 324 10/3/uL (150-400); RBC DISTRIBUTION WIDTH 16.2 % (12.0-16.0); RED CELL COUNT 3.02 10/6/uL (4.7-6.1); WHITE BLOOD CELLS 23.7 10/3/uL (4.5-10.5)
[2016-11-08 04:57] LABS: MANUAL DIFF NO %
[2016-11-08 05:08] LABS: A/G RATIO 0.4 (0.7-1.9); ALKALINE PHOSPHATASE 90 U/L (45-117); BUN (BLOOD UREA NITROGEN) 72 MG/DL (6-23); CHLORIDE, SERUM 115 MMOL/L (96-112); CO2 (CARBON DIOXIDE) 17 MMOL/L (24-34); CREATININE 2.42 MG/DL (0.70-1.30); GFR AFRICAN AMERICAN 33 ML/MIN (>=60); GFR NON AFRICAN AMERICAN 28 ML/MIN (>=60); GLUCOSE, SERUM 260 MG/DL (60-99); PHOSPHORUS, SERUM 3.8 MG/DL (2.5-4.5); POTASSIUM, SERUM 3.3 MMOL/L (3.5-5.3); SGOT(AST) 13 U/L (5-40); SGPT(ALT) 14 U/L (5-65); SODIUM, SERUM 147 MMOL/L (135-148); TOTAL BILIRUBIN 0.8 MG/DL (0-1.2); TRIGLYCERIDE 188 MG/DL (< 150)
[2016-11-08 05:14] LABS: BAND NEUTROPHILS 2 %; LYMPHOCYTES 5 %; MONOCYTES 1 %; PLATELET ESTIMATE ADQ (ADEQUATE); RBC MORPHOLOGY NORM (NORMAL); SEGMENTED NEUTROPHIL (0) 92 %; TOTAL NUCLEATED CELLS 100
[2016-11-09 04:51] LABS: ALBUMIN 1.8 G/DL (3.5-5.0); CALCIUM, SERUM 8.3 MG/DL (8.5-10.4); CHLORIDE, SERUM 114 MMOL/L (96-112); CO2 (CARBON DIOXIDE) 18 MMOL/L (24-34); POTASSIUM, SERUM 3.2 MMOL/L (3.5-5.3); SODIUM, SERUM 145 MMOL/L (135-148)
[2016-11-09 05:12] LABS: BUN (BLOOD UREA NITROGEN) 57 MG/DL (6-23); CREATININE 1.86 MG/DL (0.70-1.30); GFR AFRICAN AMERICAN 45 ML/MIN (>=60); GFR NON AFRICAN AMERICAN 39 ML/MIN (>=60); GLUCOSE, SERUM 195 MG/DL (60-99)
[2016-11-09 06:45] LABS: PROCALCITONIN 6.14 ng/mL (<0.5)
[2016-11-10 04:20] LABS: HEMATOCRIT 26.5 % (40.0-51.0); HEMOGLOBIN 8.9 g/dL (13.6-17.8); MEAN CORPUS HGB CONC 33.6 g/dL (32.0-36.0); MEAN CORPUSCULAR HEMOGLOB 30.1 pg (26.0-34.0); MEAN CORPUSCULAR VOLUME 89.5 fL (80-100); MEAN PLATELET VOLUME 10.8 fL (9.2-13.0); PLATELET COUNT 344 10/3/uL (150-400); RBC DISTRIBUTION WIDTH 15.9 % (12.0-16.0); RED CELL COUNT 2.96 10/6/uL (4.7-6.1); WHITE BLOOD CELLS 27.2 10/3/uL (4.5-10.5)
[2016-11-10 04:21] LABS: MANUAL DIFF YES %
[2016-11-10 04:28] LABS: ALBUMIN 1.7 G/DL (3.5-5.0); CALCIUM, SERUM 8.1 MG/DL (8.5-10.4); CHLORIDE, SERUM 114 MMOL/L (96-112); CO2 (CARBON DIOXIDE) 19 MMOL/L (24-34); CREATININE 1.67 MG/DL (0.70-1.30); GFR AFRICAN AMERICAN 51 ML/MIN (>=60); GFR NON AFRICAN AMERICAN 44 ML/MIN (>=60); GLUCOSE, SERUM 158 MG/DL (60-99); PHOSPHORUS, SERUM 3.7 MG/DL (2.5-4.5); POTASSIUM, SERUM 3.7 MMOL/L (3.5-5.3); SODIUM, SERUM 145 MMOL/L (135-148); TRIGLYCERIDE 166 MG/DL (< 150)
[2016-11-10 04:29] LABS: BUN (BLOOD UREA NITROGEN) 53 MG/DL (6-23)
[2016-11-10 05:44] LABS: BAND NEUTROPHILS 8 %; EOSINOPHILS 2 %; EOSINOPHILS ABSOLUTE (CALC) 0.54 10/3/uL (0.0-0.53); LYMPHOCYTES 7 %; MONOCYTES 3 %; MONOCYTES ABSOLUTE (CALC) 0.82 10/3/uL (0.21-1.20); NEUTROPHILS ABSOLUTE (CALC) 23.94 10/3/uL (2.02-8.40); PLATELET ESTIMATE ADQ (ADEQUATE); RBC MORPHOLOGY NORM (NORMAL); SEGMENTED NEUTROPHIL (0) 80 %; TOTAL NUCLEATED CELLS 100
[2016-11-11 04:36] LABS: HEMATOCRIT 24.7 % (40.0-51.0); HEMOGLOBIN 8.3 g/dL (13.6-17.8); MEAN CORPUS HGB CONC 33.6 g/dL (32.0-36.0); MEAN CORPUSCULAR HEMOGLOB 30.1 pg (26.0-34.0); MEAN CORPUSCULAR VOLUME 89.5 fL (80-100); MEAN PLATELET VOLUME 11.5 fL (9.2-13.0); PLATELET COUNT 383 10/3/uL (150-400); RED CELL COUNT 2.76 10/6/uL (4.7-6.1)
[2016-11-11 04:37] LABS: MANUAL DIFF YES %; WHITE BLOOD CELLS 30.9 10/3/uL (4.5-10.5)
[2016-11-11 04:51] LABS: ALBUMIN 1.6 G/DL (3.5-5.0); CALCIUM, SERUM 8.2 MG/DL (8.5-10.4); CHLORIDE, SERUM 116 MMOL/L (96-112); CO2 (CARBON DIOXIDE) 16 MMOL/L (24-34); GFR AFRICAN AMERICAN 59 ML/MIN (>=60); GFR NON AFRICAN AMERICAN 51 ML/MIN (>=60); GLUCOSE, SERUM 142 MG/DL (60-99); PHOSPHORUS, SERUM 3.6 MG/DL (2.5-4.5); SODIUM, SERUM 144 MMOL/L (135-148); TRIGLYCERIDE 143 MG/DL (< 150)
[2016-11-11 04:53] LABS: BUN (BLOOD UREA NITROGEN) 44 MG/DL (6-23)
[2016-11-11 06:33] LABS: PROCALCITONIN 2.78 ng/mL (<0.5)
[2016-11-11 06:42] LABS: BAND NEUTROPHILS 18 %; LYMPHOCYTES 1 %; LYMPHOCYTES ABSOLUTE (CALC) 0.31 10/3/uL (0.67-4.30); MONOCYTES 3 %; MONOCYTES ABSOLUTE (CALC) 0.93 10/3/uL (0.21-1.20); NEUTROPHILS ABSOLUTE (CALC) 29.66 10/3/uL (2.02-8.40); PLATELET ESTIMATE ADQ (ADEQUATE); POLYCHROMASIA 1+ (2-5/OIF) (0-1/OIF); SEGMENTED NEUTROPHIL (0) 78 %; TOTAL NUCLEATED CELLS 100
[2016-11-11 06:43] LABS: TOXIC GRANULATION 1+
[2016-11-12 04:59] LABS: HEMATOCRIT 23.4 % (40.0-51.0); HEMOGLOBIN 7.9 g/dL (13.6-17.8); MANUAL DIFF YES %; MEAN CORPUS HGB CONC 33.8 g/dL (32.0-36.0); MEAN CORPUSCULAR HEMOGLOB 30.4 pg (26.0-34.0); MEAN PLATELET VOLUME 10.9 fL (9.2-13.0); PLATELET COUNT 395 10/3/uL (150-400)
[2016-11-12 05:22] LABS: A/G RATIO 0.3 (0.7-1.9); ALBUMIN 1.6 G/DL (3.5-5.0); ALKALINE PHOSPHATASE 142 U/L (45-117); BUN (BLOOD UREA NITROGEN) 38 MG/DL (6-23); CALCIUM, SERUM 8.2 MG/DL (8.5-10.4); CHLORIDE, SERUM 114 MMOL/L (96-112); CO2 (CARBON DIOXIDE) 18 MMOL/L (24-34); CREATININE 1.21 MG/DL (0.70-1.30); GFR AFRICAN AMERICAN 76 ML/MIN (>=60); GFR NON AFRICAN AMERICAN 66 ML/MIN (>=60); GLOBULIN 4.7 G/DL (2.5-4.1); GLUCOSE, SERUM 128 MG/DL (60-99); PHOSPHORUS, SERUM 3.6 MG/DL (2.5-4.5); POTASSIUM, SERUM 3.8 MMOL/L (3.5-5.3); SGOT(AST) 18 U/L (5-40); SGPT(ALT) 26 U/L (5-65); SODIUM, SERUM 145 MMOL/L (135-148); TOTAL BILIRUBIN 0.6 MG/DL (0-1.2); TOTAL PROTEIN 6.3 G/DL (6.0-8.5); TRIGLYCERIDE 163 MG/DL (< 150)
[2016-11-12 05:36] LABS: BAND NEUTROPHILS 20 %; LYMPHOCYTES 5 %; LYMPHOCYTES ABSOLUTE (CALC) 1.25 10/3/uL (0.67-4.30); MONOCYTES 8 %; NEUTROPHILS ABSOLUTE (CALC) 21.75 10/3/uL (2.02-8.40); PLATELET ESTIMATE ADQ (ADEQUATE); RBC MORPHOLOGY NORM (NORMAL); SEGMENTED NEUTROPHIL (0) 67 %; TOTAL NUCLEATED CELLS 100
[2016-11-13 04:28] LABS: BASOPHILS 0.1 %; BASOPHILS ABSOLUTE 0.02 10/3/uL (0.0-0.16); EOSINOPHILS 0.1 %; EOSINOPHILS ABSOLUTE 0.03 10/3/uL (0.0-0.53); HEMATOCRIT 24.4 % (40.0-51.0); HEMOGLOBIN 8.1 g/dL (13.6-17.8); IMMATURE GRANULOCYTES 0.4 %; IMMATURE GRANULOCYTES ABSOLUTE 0.08 10/3/uL (0.0-0.11); LYMPHOCYTES 7.7 %; LYMPHOCYTES ABSOLUTE 1.62 10/3/uL (0.67-4.30); MEAN CORPUS HGB CONC 33.2 g/dL (32.0-36.0); MEAN CORPUSCULAR HEMOGLOB 29.9 pg (26.0-34.0); MEAN PLATELET VOLUME 10.9 fL (9.2-13.0); MONOCYTES ABSOLUTE 1.04 10/3/uL (0.21-1.20); NEUTROPHILS 86.7 %; PLATELET COUNT 449 10/3/uL (150-400); RBC DISTRIBUTION WIDTH 15.7 % (12.0-16.0); RED CELL COUNT 2.71 10/6/uL (4.7-6.1)
[2016-11-13 04:40] LABS: BUN (BLOOD UREA NITROGEN) 36 MG/DL (6-23); CALCIUM, SERUM 8.1 MG/DL (8.5-10.4); CHLORIDE, SERUM 111 MMOL/L (96-112); CO2 (CARBON DIOXIDE) 22 MMOL/L (24-34); CREATININE 1.22 MG/DL (0.70-1.30); GFR AFRICAN AMERICAN 75 ML/MIN (>=60); GFR NON AFRICAN AMERICAN 65 ML/MIN (>=60); GLUCOSE, SERUM 109 MG/DL (60-99); PHOSPHORUS, SERUM 3.8 MG/DL (2.5-4.5); POTASSIUM, SERUM 3.7 MMOL/L (3.5-5.3); SODIUM, SERUM 144 MMOL/L (135-148)
[2016-11-13 04:41] LABS: MANUAL DIFF NO %
[2016-11-14 06:26] LABS: BASOPHILS 0.1 %; BASOPHILS ABSOLUTE 0.01 10/3/uL (0.0-0.16); EOSINOPHILS 0.3 %; EOSINOPHILS ABSOLUTE 0.06 10/3/uL (0.0-0.53); HEMATOCRIT 23.6 % (40.0-51.0); HEMOGLOBIN 7.8 g/dL (13.6-17.8); IMMATURE GRANULOCYTES 0.4 %; IMMATURE GRANULOCYTES ABSOLUTE 0.07 10/3/uL (0.0-0.11); LYMPHOCYTES 6.1 %; LYMPHOCYTES ABSOLUTE 1.13 10/3/uL (0.67-4.30); MEAN CORPUS HGB CONC 33.1 g/dL (32.0-36.0); MEAN CORPUSCULAR HEMOGLOB 29.9 pg (26.0-34.0); MEAN CORPUSCULAR VOLUME 90.4 fL (80-100); MEAN PLATELET VOLUME 10.6 fL (9.2-13.0); MONOCYTES 6.5 %; NEUTROPHILS 86.6 %; NEUTROPHILS ABSOLUTE 16.09 10/3/uL (2.02-8.40); PLATELET COUNT 465 10/3/uL (150-400); RBC DISTRIBUTION WIDTH 15.9 % (12.0-16.0); RED CELL COUNT 2.61 10/6/uL (4.7-6.1); WHITE BLOOD CELLS 18.6 10/3/uL (4.5-10.5)
[2016-11-14 06:41] LABS: MANUAL DIFF NO %
[2016-11-14 06:43] LABS: CALCIUM, SERUM 8.1 MG/DL (8.5-10.4); CHLORIDE, SERUM 110 MMOL/L (96-112); CO2 (CARBON DIOXIDE) 24 MMOL/L (24-34); GFR AFRICAN AMERICAN 77 ML/MIN (>=60); GFR NON AFRICAN AMERICAN 66 ML/MIN (>=60); GLUCOSE, SERUM 106 MG/DL (60-99); SODIUM, SERUM 144 MMOL/L (135-148); VANCOMYCIN TROUGH 20.1 MCG/ML (10.0-20.0)
[2016-11-14 06:44] LABS: BUN (BLOOD UREA NITROGEN) 32 MG/DL (6-23)
[2016-11-14 10:15] LABS: PHOSPHORUS, SERUM 4.1 MG/DL (2.5-4.5)
[2016-11-15 06:15] LABS: BASOPHILS 0.1 %; BASOPHILS ABSOLUTE 0.01 10/3/uL (0.0-0.16); EOSINOPHILS 0.5 %; EOSINOPHILS ABSOLUTE 0.09 10/3/uL (0.0-0.53); HEMATOCRIT 24.1 % (40.0-51.0); HEMOGLOBIN 7.9 g/dL (13.6-17.8); IMMATURE GRANULOCYTES 0.2 %; IMMATURE GRANULOCYTES ABSOLUTE 0.04 10/3/uL (0.0-0.11); LYMPHOCYTES 8.9 %; LYMPHOCYTES ABSOLUTE 1.54 10/3/uL (0.67-4.30); MEAN CORPUS HGB CONC 32.8 g/dL (32.0-36.0); MEAN CORPUSCULAR VOLUME 91.6 fL (80-100); MEAN PLATELET VOLUME 10.6 fL (9.2-13.0); MONOCYTES 6.9 %; MONOCYTES ABSOLUTE 1.19 10/3/uL (0.21-1.20); NEUTROPHILS 83.4 %; NEUTROPHILS ABSOLUTE 14.44 10/3/uL (2.02-8.40); PLATELET COUNT 514 10/3/uL (150-400); RBC DISTRIBUTION WIDTH 15.9 % (12.0-16.0); RED CELL COUNT 2.63 10/6/uL (4.7-6.1); WHITE BLOOD CELLS 17.3 10/3/uL (4.5-10.5)
[2016-11-15 06:17] LABS: MANUAL DIFF NO %
[2016-11-15 06:34] LABS: CHLORIDE, SERUM 108 MMOL/L (96-112); CO2 (CARBON DIOXIDE) 26 MMOL/L (24-34); CREATININE 1.16 MG/DL (0.70-1.30); GFR AFRICAN AMERICAN 80 ML/MIN (>=60); GFR NON AFRICAN AMERICAN 69 ML/MIN (>=60); PHOSPHORUS, SERUM 3.7 MG/DL (2.5-4.5); POTASSIUM, SERUM 4.2 MMOL/L (3.5-5.3); SODIUM, SERUM 144 MMOL/L (135-148)
[2016-11-15 06:35] LABS: BUN (BLOOD UREA NITROGEN) 28 MG/DL (6-23); GLUCOSE, SERUM 81 MG/DL (60-99)
[2016-11-16 07:19] LABS: BASOPHILS 0.2 %; BASOPHILS ABSOLUTE 0.03 10/3/uL (0.0-0.16); EOSINOPHILS 0.4 %; EOSINOPHILS ABSOLUTE 0.06 10/3/uL (0.0-0.53); HEMATOCRIT 23.5 % (40.0-51.0); HEMOGLOBIN 7.8 g/dL (13.6-17.8); IMMATURE GRANULOCYTES 0.2 %; IMMATURE GRANULOCYTES ABSOLUTE 0.03 10/3/uL (0.0-0.11); LYMPHOCYTES 11.5 %; LYMPHOCYTES ABSOLUTE 1.69 10/3/uL (0.67-4.30); MEAN CORPUS HGB CONC 33.2 g/dL (32.0-36.0); MEAN CORPUSCULAR HEMOGLOB 30.2 pg (26.0-34.0); MEAN CORPUSCULAR VOLUME 91.1 fL (80-100); MEAN PLATELET VOLUME 10.1 fL (9.2-13.0); MONOCYTES 5.8 %; MONOCYTES ABSOLUTE 0.85 10/3/uL (0.21-1.20); NEUTROPHILS 81.9 %; NEUTROPHILS ABSOLUTE 12.04 10/3/uL (2.02-8.40); PLATELET COUNT 485 10/3/uL (150-400); RBC DISTRIBUTION WIDTH 15.6 % (12.0-16.0); RED CELL COUNT 2.58 10/6/uL (4.7-6.1); WHITE BLOOD CELLS 14.7 10/3/uL (4.5-10.5)
[2016-11-16 07:20] LABS: MANUAL DIFF NO %
[2016-11-16 07:29] LABS: BUN (BLOOD UREA NITROGEN) 20 MG/DL (6-23); CHLORIDE, SERUM 106 MMOL/L (96-112); CO2 (CARBON DIOXIDE) 26 MMOL/L (24-34); CREATININE 1.05 MG/DL (0.70-1.30); GFR AFRICAN AMERICAN 90 ML/MIN (>=60); GFR NON AFRICAN AMERICAN 78 ML/MIN (>=60); GLUCOSE, SERUM 92 MG/DL (60-99); POTASSIUM, SERUM 4.3 MMOL/L (3.5-5.3); SODIUM, SERUM 142 MMOL/L (135-148)
[2016-11-17 05:25] LABS: BASOPHILS 0.2 %; BASOPHILS ABSOLUTE 0.02 10/3/uL (0.0-0.16); EOSINOPHILS 0.6 %; EOSINOPHILS ABSOLUTE 0.07 10/3/uL (0.0-0.53); HEMATOCRIT 22.5 % (40.0-51.0); HEMOGLOBIN 7.4 g/dL (13.6-17.8); IMMATURE GRANULOCYTES 0.3 %; IMMATURE GRANULOCYTES ABSOLUTE 0.03 10/3/uL (0.0-0.11); LYMPHOCYTES 11.3 %; LYMPHOCYTES ABSOLUTE 1.35 10/3/uL (0.67-4.30); MEAN CORPUS HGB CONC 32.9 g/dL (32.0-36.0); MEAN CORPUSCULAR HEMOGLOB 29.7 pg (26.0-34.0); MEAN CORPUSCULAR VOLUME 90.4 fL (80-100); MEAN PLATELET VOLUME 10.1 fL (9.2-13.0); MONOCYTES 8.5 %; MONOCYTES ABSOLUTE 1.01 10/3/uL (0.21-1.20); NEUTROPHILS 79.1 %; NEUTROPHILS ABSOLUTE 9.47 10/3/uL (2.02-8.40); PLATELET COUNT 481 10/3/uL (150-400); RBC DISTRIBUTION WIDTH 15.3 % (12.0-16.0); RED CELL COUNT 2.49 10/6/uL (4.7-6.1)
[2016-11-17 05:27] LABS: MANUAL DIFF NO %
[2016-11-17 05:42] LABS: BUN (BLOOD UREA NITROGEN) 18 MG/DL (6-23); CALCIUM, SERUM 7.9 MG/DL (8.5-10.4); CHLORIDE, SERUM 104 MMOL/L (96-112); CO2 (CARBON DIOXIDE) 25 MMOL/L (24-34); CREATININE 1.04 MG/DL (0.70-1.30); GFR AFRICAN AMERICAN 91 ML/MIN (>=60); GFR NON AFRICAN AMERICAN 79 ML/MIN (>=60); GLUCOSE, SERUM 79 MG/DL (60-99); SODIUM, SERUM 141 MMOL/L (135-148)
[2016-11-18 05:57] LABS: BASOPHILS 0.1 %; BASOPHILS ABSOLUTE 0.01 10/3/uL (0.0-0.16); EOSINOPHILS 0.7 %; EOSINOPHILS ABSOLUTE 0.07 10/3/uL (0.0-0.53); HEMATOCRIT 23.6 % (40.0-51.0); HEMOGLOBIN 7.7 g/dL (13.6-17.8); IMMATURE GRANULOCYTES 0.3 %; IMMATURE GRANULOCYTES ABSOLUTE 0.03 10/3/uL (0.0-0.11); LYMPHOCYTES 13.7 %; LYMPHOCYTES ABSOLUTE 1.36 10/3/uL (0.67-4.30); MEAN CORPUS HGB CONC 32.6 g/dL (32.0-36.0); MEAN CORPUSCULAR HEMOGLOB 29.6 pg (26.0-34.0); MEAN CORPUSCULAR VOLUME 90.8 fL (80-100); MONOCYTES 7.5 %; MONOCYTES ABSOLUTE 0.75 10/3/uL (0.21-1.20); NEUTROPHILS 77.7 %; NEUTROPHILS ABSOLUTE 7.74 10/3/uL (2.02-8.40); PLATELET COUNT 493 10/3/uL (150-400); RBC DISTRIBUTION WIDTH 15.4 % (12.0-16.0)
[2016-11-18 06:09] LABS: MANUAL DIFF NO %
[2016-11-18 06:11] LABS: BUN (BLOOD UREA NITROGEN) 15 MG/DL (6-23); CALCIUM, SERUM 8.1 MG/DL (8.5-10.4); CHLORIDE, SERUM 103 MMOL/L (96-112); CO2 (CARBON DIOXIDE) 26 MMOL/L (24-34); CREATININE 1.06 MG/DL (0.70-1.30); GFR AFRICAN AMERICAN 89 ML/MIN (>=60); GFR NON AFRICAN AMERICAN 77 ML/MIN (>=60); GLUCOSE, SERUM 83 MG/DL (60-99); POTASSIUM, SERUM 3.6 MMOL/L (3.5-5.3); SODIUM, SERUM 139 MMOL/L (135-148)
[2016-11-19 05:53] LABS: BASOPHILS 0.1 %; BASOPHILS ABSOLUTE 0.01 10/3/uL (0.0-0.16); EOSINOPHILS 0.9 %; HEMATOCRIT 23.7 % (40.0-51.0); HEMOGLOBIN 7.8 g/dL (13.6-17.8); IMMATURE GRANULOCYTES 0.3 %; IMMATURE GRANULOCYTES ABSOLUTE 0.03 10/3/uL (0.0-0.11); LYMPHOCYTES 15.9 %; LYMPHOCYTES ABSOLUTE 1.68 10/3/uL (0.67-4.30); MANUAL DIFF NO %; MEAN CORPUS HGB CONC 32.9 g/dL (32.0-36.0); MEAN CORPUSCULAR HEMOGLOB 29.7 pg (26.0-34.0); MEAN CORPUSCULAR VOLUME 90.1 fL (80-100); MEAN PLATELET VOLUME 9.5 fL (9.2-13.0); MONOCYTES 6.3 %; MONOCYTES ABSOLUTE 0.66 10/3/uL (0.21-1.20); NEUTROPHILS 76.5 %; NEUTROPHILS ABSOLUTE 8.07 10/3/uL (2.02-8.40); PLATELET COUNT 445 10/3/uL (150-400); RBC DISTRIBUTION WIDTH 15.2 % (12.0-16.0); RED CELL COUNT 2.63 10/6/uL (4.7-6.1); WHITE BLOOD CELLS 10.6 10/3/uL (4.5-10.5)
[2016-11-20 05:11] LABS: BASOPHILS 0.1 %; BASOPHILS ABSOLUTE 0.01 10/3/uL (0.0-0.16); EOSINOPHILS 0.8 %; EOSINOPHILS ABSOLUTE 0.08 10/3/uL (0.0-0.53); HEMATOCRIT 22.2 % (40.0-51.0); HEMOGLOBIN 7.3 g/dL (13.6-17.8); IMMATURE GRANULOCYTES 0.3 %; IMMATURE GRANULOCYTES ABSOLUTE 0.03 10/3/uL (0.0-0.11); LYMPHOCYTES 15.1 %; LYMPHOCYTES ABSOLUTE 1.54 10/3/uL (0.67-4.30); MEAN CORPUS HGB CONC 32.9 g/dL (32.0-36.0); MEAN CORPUSCULAR HEMOGLOB 29.6 pg (26.0-34.0); MEAN CORPUSCULAR VOLUME 89.9 fL (80-100); MEAN PLATELET VOLUME 9.3 fL (9.2-13.0); MONOCYTES 7.1 %; MONOCYTES ABSOLUTE 0.72 10/3/uL (0.21-1.20); NEUTROPHILS 76.6 %; NEUTROPHILS ABSOLUTE 7.81 10/3/uL (2.02-8.40); PLATELET COUNT 418 10/3/uL (150-400); RBC DISTRIBUTION WIDTH 15.3 % (12.0-16.0); RED CELL COUNT 2.47 10/6/uL (4.7-6.1); WHITE BLOOD CELLS 10.2 10/3/uL (4.5-10.5)
[2016-11-20 05:21] LABS: CALCIUM, SERUM 7.8 MG/DL (8.5-10.4); CHLORIDE, SERUM 110 MMOL/L (96-112); CO2 (CARBON DIOXIDE) 25 MMOL/L (24-34); CREATININE 0.93 MG/DL (0.70-1.30); GFR AFRICAN AMERICAN 105 ML/MIN (>=60); GFR NON AFRICAN AMERICAN 90 ML/MIN (>=60); GLUCOSE, SERUM 85 MG/DL (60-99); POTASSIUM, SERUM 3.3 MMOL/L (3.5-5.3); SODIUM, SERUM 143 MMOL/L (135-148)
[2016-11-20 05:22] LABS: BUN (BLOOD UREA NITROGEN) 10 MG/DL (6-23)
[2016-11-20 05:28] LABS: MANUAL DIFF NO %
[2016-11-21 06:15] LABS: BUN (BLOOD UREA NITROGEN) 8 MG/DL (6-23); CALCIUM, SERUM 8.6 MG/DL (8.5-10.4); CHLORIDE, SERUM 105 MMOL/L (96-112); CO2 (CARBON DIOXIDE) 26 MMOL/L (24-34); CREATININE 0.91 MG/DL (0.70-1.30); GFR AFRICAN AMERICAN 107 ML/MIN (>=60); GFR NON AFRICAN AMERICAN 93 ML/MIN (>=60); GLUCOSE, SERUM 86 MG/DL (60-99); POTASSIUM, SERUM 3.3 MMOL/L (3.5-5.3); SODIUM, SERUM 141 MMOL/L (135-148)
[2016-11-21 21:16] LABS: HEMATOCRIT 27.6 % (40.0-51.0); HEMOGLOBIN 9.3 g/dL (13.6-17.8)
[2016-11-22 07:04] LABS: BASOPHILS 0.2 %; BASOPHILS ABSOLUTE 0.02 10/3/uL (0.0-0.16); EOSINOPHILS 0.6 %; EOSINOPHILS ABSOLUTE 0.07 10/3/uL (0.0-0.53); HEMATOCRIT 28.7 % (40.0-51.0); HEMOGLOBIN 9.6 g/dL (13.6-17.8); IMMATURE GRANULOCYTES 0.3 %; IMMATURE GRANULOCYTES ABSOLUTE 0.03 10/3/uL (0.0-0.11); LYMPHOCYTES 13.1 %; LYMPHOCYTES ABSOLUTE 1.51 10/3/uL (0.67-4.30); MEAN CORPUS HGB CONC 33.4 g/dL (32.0-36.0); MEAN CORPUSCULAR HEMOGLOB 29.4 pg (26.0-34.0); MONOCYTES 5.8 %; MONOCYTES ABSOLUTE 0.67 10/3/uL (0.21-1.20); NEUTROPHILS ABSOLUTE 9.23 10/3/uL (2.02-8.40); PLATELET COUNT 378 10/3/uL (150-400); RBC DISTRIBUTION WIDTH 14.9 % (12.0-16.0); WHITE BLOOD CELLS 11.5 10/3/uL (4.5-10.5)
[2016-11-22 07:08] LABS: MANUAL DIFF NO %; RED CELL COUNT 3.26 10/6/uL (4.7-6.1)
[2016-11-22 07:16] LABS: BUN (BLOOD UREA NITROGEN) 7 MG/DL (6-23); CALCIUM, SERUM 8.2 MG/DL (8.5-10.4); CHLORIDE, SERUM 101 MMOL/L (96-112); CO2 (CARBON DIOXIDE) 26 MMOL/L (24-34); CREATININE 0.85 MG/DL (0.70-1.30); GFR AFRICAN AMERICAN 111 ML/MIN (>=60); GFR NON AFRICAN AMERICAN 96 ML/MIN (>=60); POTASSIUM, SERUM 3.2 MMOL/L (3.5-5.3); SODIUM, SERUM 138 MMOL/L (135-148)
[2016-11-22 07:17] LABS: GLUCOSE, SERUM 106 MG/DL (60-99)
[2016-11-22] MEDS ORDERED: NORV5 PO (08:54)
[2016-11-22] MEDS ORDERED: APRES25 PO (11:54)
== END 2016-11-22 13:20 | disposition home or self-care (01) | DRG 907 ==
LOC: 5SO 12:26 → MIC 19:14 → 5SO 11-13 21:55
PROVIDERS: Internal Medicine Critical Care Medicine; Internal Medicine Nephrology; Internal Medicine Pulmonary Disease; Surgery
PROC: 05HM33Z Insertion of Infusion Device into Right Internal Jugular Vein, Percutaneous Approach (ICD-10-PCS; principal; 2016-11-01)
PROC: B543ZZA Ultrasonography of Right Jugular Veins, Guidance (ICD-10-PCS; 2016-11-01)
PROC: 0DQ90ZZ Repair Duodenum, Open Approach (ICD-10-PCS; 2016-11-02)
PROC: 0D9900Z Drainage of Duodenum with Drainage Device, Open Approach (ICD-10-PCS; 2016-11-02)
PROC: 0DU907Z Supplement Duodenum with Autologous Tissue Substitute, Open Approach (ICD-10-PCS; 2016-11-02)
PROC: 02HV33Z Insertion of Infusion Device into Superior Vena Cava, Percutaneous Approach (ICD-10-PCS; 2016-11-03)
PROC: 4A02X4A Measurement of Cardiac Electrical Activity, Guidance, External Approach (ICD-10-PCS; 2016-11-03)
PROC: 3E0436Z Introduction of Nutritional Substance into Central Vein, Percutaneous Approach (ICD-10-PCS; 2016-11-03)
PROC: 0W9G30Z Drainage of Peritoneal Cavity with Drainage Device, Percutaneous Approach (ICD-10-PCS; 2016-11-06)
PROC: 0W9F30Z Drainage of Abdominal Wall with Drainage Device, Percutaneous Approach (ICD-10-PCS; 2016-11-12)
PROC: 30233N1 Transfusion of Nonautologous Red Blood Cells into Peripheral Vein, Percutaneous Approach (ICD-10-PCS; 2016-11-21)
DX: T85.638A Leakage of other specified internal prosthetic devices, implants and grafts, initial encounter (principal); R65.21 Severe sepsis with septic shock; N17.0 Acute kidney failure with tubular necrosis; A41.59 Other Gram-negative sepsis; J95.821 Acute postprocedural respiratory failure; E43 Unspecified severe protein-calorie malnutrition; K65.8 Other peritonitis; K56.7 Ileus, unspecified; E87.2 Acidosis; T81.4XXA Infection following a procedure, initial encounter; E87.0 Hyperosmolality and hypernatremia; J98.11 Atelectasis; D62 Acute posthemorrhagic anemia; E86.0 Dehydration; I10 Essential (primary) hypertension; M06.9 Rheumatoid arthritis, unspecified; F17.210 Nicotine dependence, cigarettes, uncomplicated; D64.9 Anemia, unspecified; Z83.3 Family history of diabetes mellitus; Z82.49 Family history of ischemic heart disease and other diseases of the circulatory system; Z79.52 Long term (current) use of systemic steroids; Z79.899 Other long term (current) drug therapy; Z90.49 Acquired absence of other specified parts of digestive tract; G89.4 Chronic pain syndrome
CPT/HCPCS: 10030; 31720; 36415; 36430; 36569; 36600; 49083; 49418; 49424; 71010; 71250; 74000; 74176; 74300; 80048; 80053; 80069; 80202; 81001; 82150; 82330; 82570; 82803; 82805; 82947; 82962; 83605; 83690; 83735; 84100; 84132; 84134; 84145; 84295; 84300; 84478; 85014; 85018; 85025; 85379; 85384; 85610; 85730; 86850; 86900; 86901; 86920; 87040; 87070; 87075; 87077; 87102; 87106; 87186; 87205; 87641; 93005; 94002; 94640; 94667; 94668; 97161-GP; A9270-GY; C1751; C1769; C1894; C9113; J0360; J1170; J1720; J1940; J2185; J2248; J2250; J2370; J2405; J2543; J2930; J3010; J3370; J3411; P9016; P9045; P9047; Q9967

== ENCOUNTER 2016-12-04 11:57 | Inpatient (IN) | payer BC ==
--- NOTE | ~2016-12-04 | CN ---
Consultation Report [facility] [address] [place]. [address] NAME: LAURIE HUDSON : 56 STATUS : ADM IN PAT#: [id number] AGE: 56 ADM/REG DATE : 12/04/16 MR#: [id number] REPORT SERV DATE: 12/06/16 DICTATED BY: LEVI CAAL DATE: 12/06/16 REPORT STATUS : Draft TRANSCRIBED BY: MODTelma DATE: 12/06/16 GI CONSULTATION DATE OF CONSULTATION: 12/06/2016 REASON FOR CONSULTATION: Evaluation and management of postgastrectomy nausea, reflux. HISTORY OF PRESENT ILLNESS: Mr. Hudson is a 56-year-old male patient, who is known to Dr. Lele Hawley in the outpatient setting, who presented to [facility] as a direct admission from Dr. Lee' office on 12/04 secondary to nausea, weight loss, and dehydration. He has a pertinent past medical history of recent distal gastrectomy with Billroth II anastomosis in october of this year secondary to a large GIST tumor. He did have complications postoperatively with a duodenal stump leak that was related to chronic steroid use that required a laparotomy with placement of a duodenostomy tube and drainage of his abdominal cavity by Dr. Lee. He was discharged after that on 11/05. He returned to Dr. Lee' office this week complaining of severe nausea, reflux, anorexia. The patient was found to be dehydrated. He was subsequently admitted for IV fluids, as well as he has been started on TPN. He states that since his diagnosis and surgery, he has lost roughly 30 pounds. Presently, he is feeling somewhat better and has been started on a full liquid diet, but he had an upper GI series, small-bowel follow-through done today, which showed findings of status post partial gastrectomy. He had a widely patent gastrojejunostomy. There was no extravasation of contrast. He had also findings of severe spontaneous GERD to the level of the upper thorax. The patient states that his reflux causes him to have burning in his chest and esophagus to the point where he does not want to eat. He states that this was a problem even before his surgical intervention. He has no abdominal pain. He has not had any fever or chills. He says he does not vomit, but he does get significant nausea. I have discussed with him as well as ROSA ISELA Martines with Dr. Lee that we will try to obtain maximum acid suppression, no plans for endoscopy at this point, a trial of full liquids and see how he does. PAST MEDICAL HISTORY: Positive for a large GIST tumor, he is status post distal gastrectomy with Billroth II anastomosis on 10/24/2016, then was readmitted with a surgical abdomen, had duodenal stump leak with peritonitis, required surgery with duodenal stump, placement of duodenostomy tube and drainage of the abdominal cavity as well as a Ric patch closure of the duodenal stump. He has a history of steroid-dependent arthritis, hypertension, GERD, Legionnaires pneumonia. FAMILY HISTORY: Noncontributory from a GI standpoint. SOCIAL HISTORY: Past tobacco. History of past alcohol. No illicits. ALLERGIES: NONE. HOME MEDICATIONS: Norvasc, hydrochlorothiazide, Apresoline, multivitamin, Percocet. Consultation Report [address] [address] NAME: LAURIE HUDSON : 56 STATUS : ADM IN [facility]#: [id number] AGE: 56 ADM/REG DATE : 12/04/16 MR#: [id number] REPORT SERV DATE: 12/06/16 DICTATED BY: LEVI CAAL DATE: 12/06/16 REPORT STATUS : Draft TRANSCRIBED BY: ROSELYN DATE: 12/06/16 REVIEW OF SYSTEMS: A 10-point review of systems obtained with pertinent positives addressed in the history of present illness. PERTINENT LABORATORY DATA: Sodium 135, potassium 3.8, BUN is 32, creatinine 0.93. White count is 10.1, hemoglobin 9.8, hematocrit 29.8, platelet count 584. PHYSICAL EXAMINATION: VITAL SIGNS: Temperature 99, pulse , respirations 14, blood pressure 131/78. NEURO: Reveals an alert male, resting in bed with no focal deficits. GENERAL: He is cooperative. He is in no apparent distress. He is awake, alert, and oriented x3. HEAD, EARS, EYES, NOSE, AND THROAT: Anicteric. Pupils equal, round, reactive to light and accommodation. Normocephalic and atraumatic. NECK: No JVD. No palpable nodes. Supple. LUNGS: Decreased in the bases with normal respiratory effort exhibited. Clear in the upper lobes. CARDIOVASCULAR SYSTEM: Regular rate and rhythm. ABDOMEN: Soft, nontender, nondistended. He has a right-sided T-tube with dnaeny-zo-wofwy output in that. EXTREMITIES: No edema. Normal distal pulses. SKIN: Warm, dry, and intact. ASSESSMENT: 1. Severe reflux, found on upper GI series. 2. Anorexia. 3. Weight loss. 4. Recent partial gastrectomy secondary to gastrointestinal stromal tumor. 5. Dehydration. PLAN: 1. We will increase his PPI to t.i.d., add an H2 inhibitor twice a day, Carafate four times a day. 2. We will encourage the patient meals as well as any antireflux precautions available. We will follow. BIBI/ROSELYN KATHRYN Edward Consultation Report [address] [place]. [address] NAME: LAURIE HUDSON : 56 STATUS : ADM IN [facility]#: [id number] AGE: 56 ADM/REG DATE : 12/04/16 MR#: [id number] REPORT SERV DATE: 12/06/16 DICTATED BY: LEVI CAAL DATE: 12/06/16 REPORT STATUS : Draft TRANSCRIBED BY: ROSELYN DATE: 12/06/16 / [id number] CC: Andrea Lee III, M.D.
--- NOTE | ~2016-12-04 | HP ---
History And Physical [place] [facility] [address] [place]. [address] NAME: LAURIE VOGEL : 56 STATUS : ADM IN [facility]#: [id number] AGE: 56 ADM/REG DATE : 12/04/16 MR#: [id number] REPORT SERV DATE: 12/04/16 DICTATED BY: STEPHANIE LEE III DATE: 12/04/16 REPORT STATUS : Draft TRANSCRIBED BY: MODTelma DATE: 12/04/16 DATE OF ADMISSION: 12/04/2016 HISTORY OF PRESENT ILLNESS: This 56-year-old male was admitted to the hospital emergently with evidence for severe nausea, weight loss, and dehydration. The patient complains profound nausea. He has been unable to tolerate any significant amount of solid or liquid foods. The patient is status post partial gastrectomy, which was performed for a giant GIST tumor. His postoperative course was involved with a duodenal stump leak related to his steroids. This was treated with a laparotomy and drainage. He subsequently had several upper abdominal abscess which were drained under CT guidance. The patient discharged home in good condition on 11/05/2016. He will return to the office this week. He is having no fever, chills, or abdominal pain, but complains of severe nausea and inability to eat any significant amount of solid food. He appeared to be dehydrated with dry mucous membranes and clearly has lost weight. The etiology for his symptoms is unclear, but it was felt that emergent admission to the hospital is indicated for IV nutrition, rehydration, and evaluation of his complaints of nausea and inability to eat. PAST MEDICAL HISTORY: 1. History of giant GIST tumor. The patient is status post resection of this tumor with the partial gastrectomy performed on 10/24/2016. The patient was discharged home in good condition, but had to be readmitted with sepsis. He was readmitted on 11/01/2016. He underwent exploration on 11/04/2016 for sepsis. He was found have a duodenal stump leak with peritonitis. This was felt to be related to his steroid dependent rheumatoid arthritis. The duodenal stump leak was drained, and a duodenostomy tube was placed. The patient's recovery following this was slow, but otherwise uneventful. 2. History of steroid-dependent arthritis as above. 3. History of giant GIST tumor, status post partial gastrectomy with duodenal stump leak, which is now sealed radiographically. 4. Hypertension. 5. History of previous sepsis with legionnaire pneumonia earlier this year. PAST SURGICAL HISTORY: Otherwise none. MEDICATIONS: Hydrochlorothiazide, prednisone, amlodipine, Exforge, hydrocodone, and hydroxychloroquine. FAMILY HISTORY: Positive for diabetes and heart disease. SOCIAL HISTORY: The patient has a history of tobacco abuse. He has a history of alcohol use. ALLERGIES: NONE. REVIEW OF SYSTEMS: The patient's 14-point review of systems is otherwise unremarkable. History And Physical [address] [address] NAME: LAURIE VOGEL : 56 STATUS : ADM IN [facility]#: [id number] AGE: 56 ADM/REG DATE : 12/04/16 MR#: [id number] REPORT SERV DATE: 12/04/16 DICTATED BY: STEPHANIE LEE III DATE: 12/04/16 REPORT STATUS : Draft TRANSCRIBED BY: ROSELYN DATE: 12/04/16 PHYSICAL EXAMINATION: GENERAL: This is a male who appears ill. He has lost weight. He has very dry mucous membranes and skin turgor is very loose. HEENT: Unremarkable. Otherwise, cranial nerves 2 through 12 are normal. LUNGS: Clear. CARDIAC: Normal. ABDOMEN: Soft and nontender. He has a well-healed incision. He has a T-tube and LIYA drain in place. ASSESSMENT: A 56-year-old male with: 1. Nausea and weight loss and severe dehydration. 2. Status post previous distal gastrectomy for giant GIST tumor, clear margins. 3. Duodenal stump leak, requiring laparotomy with drainage. 4. Steroid-dependent arthritis. 5. Hypertension. PLAN: The patient will be admitted and started on parenteral fluids. I have requested an upper GI series to evaluate his anastomosis and rule out obstruction. I have requested a PICC line for TPN for nutritional support. The patient's last CT scan performed last week showed no evidence for residual abscess or any evidence for infection. It should be noted that the final pathology showed the patient to have an 11 cm giant GIST tumor, with clear margins, with a necrosis present and one negative lymph node. This plan was explained to the patient. His questions have been answered. He understands and agrees to this as planned. ANG/ROSELYN Stephanie Lee III, M.D. / [id number] CC: Austin Schulte III, M.D.
--- NOTE | ~2016-12-04 | DS ---
Discharge Summary [facility] [address] [place]. [address] NAME: LAURIE VOGEL : 56 STATUS : DIS IN PAT#: [id number] AGE: 56 ADM/REG DATE : 12/04/16 MR#: [id number] REPORT SERV DATE: 12/19/16 DICTATED BY: STEPHANIE MOCK III DATE: 12/18/16 REPORT STATUS : Draft TRANSCRIBED BY: ROSELYN DATE: 12/18/16 Data Collection from hospitalization DISCHARGE DIAGNOSES: 1. Severe gastroesophageal reflux disease-improving. 2. Hypertension. 3. History of giant gastrointestinal stromal tumor. 4. History of previous sepsis with Legionnaires pneumonia. 5. History of steroid-dependent arthritis. 6. Former tobacco use. CONSULTATION: KATHRYN Edward PROCEDURES PERFORMED: GI and small bowel study with air, 12/05/2016. DISCHARGE MEDICATIONS: Norvasc 5 mg at bedtime, hydrochlorothiazide 25 mg daily, Apresoline 25 mg three times a day, Reglan 10 mg before meals and at bedtime, multivitamins one tablet daily, Percocet 7.5/325 one tablet three times a day as needed, Protonix 40 mg before meal, Carafate 1 g four times a day. CONDITION AT DISCHARGE: Stable. DISPOSITION: The patient was discharged home on a soft diet with activities as instructed. He would follow up with me, 12/25/2016. HOSPITAL COURSE: This is a 56-year-old man, who presented to the hospital emergently with evidence of severe nausea, weight loss, and dehydration. He was complaining of profound nausea. He had been unable to tolerate any significant amount of solid or liquid food. He is status post partial gastrectomy, which was performed for a giant GIST tumor. His postoperative course was involved with a duodenal stump leak related to his steroids. He was treated with a laparotomy and drainage. He subsequently had several upper abdominal abscesses, which were drained under CT guidance. He had been discharged home in good condition on 11/05/2016. He appeared to be dehydrated with dry mucous membranes and had clearly lost weight. The etiology for his symptoms was unclear, but it was felt that emergent admission to the hospital was indicated for IV nutrition, rehydration, and evaluation of complaints of nausea and inability to eat. He was admitted to the hospital at this time for further evaluation and treatment. Upon admission, parenteral fluids were started. An upper GI series was going to be performed to evaluate his anastomosis and rule out obstruction. A PICC line was going to be inserted for TPN therapy for nutritional support. A CT scan the week prior to this admission showed no evidence for residual abscess or any evidence for infection. It should be noted that the final pathology showed the patient to have an 11 cm giant GIST tumor with clear margins with a necrosis present and one negative lymph node. A PICC line was inserted. The following day, there had been no immediate change. He had minimal oral intake. TPN therapy continued. Upper GI study was performed. On 12/06/2016, he said he was feeling better, but he had been n.p.o. Full liquids were started. Reglan was being provided as well as Protonix. TPN continued. He was seen by Riley Maria for Discharge Summary [address] [address] NAME: LAURIE VOGEL : 56 STATUS : DIS IN PAT#: [id number] AGE: 56 ADM/REG DATE : 12/04/16 MR#: [id number] REPORT SERV DATE: 12/19/16 DICTATED BY: STEPHANIE MOCK III DATE: 12/18/16 REPORT STATUS : Draft TRANSCRIBED BY: ROSELYN DATE: 12/18/16 evaluation and management of post gastrectomy nausea and reflux. The patient said that since his diagnosis and surgery, he had lost about 30 pounds. He said he was presently feeling somewhat better and had been started on a full liquid diet. He had an upper GI series. Small bowel follow-through done, which showed findings of partial gastrectomy. He had a widely patent gastrojejunostomy. There was no extravasation of contrast. He also had findings of severe spontaneous gastroesophageal reflux disease to the level of the upper thorax. The patient said that his reflux causes him to have burning in his chest and esophagus to the point where he does not want to eat. He said that this was a problem even before his surgical intervention. His proton pump inhibitor was increased. H2 inhibitor was added. Carafate was being provided. On 12/07/2016, he was feeling better. He wanted to try and eat solid food. Over the next couple of days, he continued to do well. TPN therapy was being weaned. Discharge planning was performed. On 12/09/2016, he was feeling much better and wanted to go home. He was eating better. He remained afebrile. Discharge instructions were given. Due to his improved and stable condition, he was discharged home with the above-stated instructions. Information collected by: Viridiana Jessica I submit the above information as my discharge summary. GRACIE/ROSELYN Stephanie Mock III, M.D. / [id number] CC: Austin Schulte III, M.D.
[~2016-12-04 11:57] MED LIST changes: +APRES25 PO; +NORV5 PO
[2016-12-04 14:27] LABS: BASOPHILS 0.2 %; BASOPHILS ABSOLUTE 0.02 10/3/uL (0.0-0.16); EOSINOPHILS 1.1 %; EOSINOPHILS ABSOLUTE 0.13 10/3/uL (0.0-0.53); HEMATOCRIT 33.5 % (40.0-51.0); HEMOGLOBIN 11.4 g/dL (13.6-17.8); IMMATURE GRANULOCYTES 0.4 %; IMMATURE GRANULOCYTES ABSOLUTE 0.05 10/3/uL (0.0-0.11); LYMPHOCYTES 11.2 %; LYMPHOCYTES ABSOLUTE 1.37 10/3/uL (0.67-4.30); MEAN CORPUSCULAR HEMOGLOB 29.5 pg (26.0-34.0); MEAN CORPUSCULAR VOLUME 86.6 fL (80-100); MEAN PLATELET VOLUME 9.2 fL (9.2-13.0); MONOCYTES 7.4 %; MONOCYTES ABSOLUTE 0.91 10/3/uL (0.21-1.20); NEUTROPHILS 79.7 %; PLATELET COUNT 698 10/3/uL (150-400); RBC DISTRIBUTION WIDTH 14.4 % (12.0-16.0); RED CELL COUNT 3.87 10/6/uL (4.7-6.1); WHITE BLOOD CELLS 12.3 10/3/uL (4.5-10.5)
[2016-12-04 14:28] LABS: MANUAL DIFF NO %
[2016-12-04 14:44] LABS: CO2 (CARBON DIOXIDE) 30 MMOL/L (24-34); GLUCOSE, SERUM 94 MG/DL (60-99); SGOT(AST) 11 U/L (5-40); SGPT(ALT) 18 U/L (5-65); TOTAL BILIRUBIN 0.4 MG/DL (0-1.2)
[2016-12-04 14:45] LABS: A/G RATIO 0.4 (0.7-1.9); ALBUMIN 2.9 G/DL (3.5-5.0); ALKALINE PHOSPHATASE 359 U/L (45-117); BUN (BLOOD UREA NITROGEN) 23 MG/DL (6-23); CALCIUM, SERUM 10.4 MG/DL (8.5-10.4); CHLORIDE, SERUM 90 MMOL/L (96-112); CREATININE 1.45 MG/DL (0.70-1.30); GFR AFRICAN AMERICAN 61 ML/MIN (>=60); GFR NON AFRICAN AMERICAN 53 ML/MIN (>=60); GLOBULIN 7.4 G/DL (2.5-4.1); POTASSIUM, SERUM 3.9 MMOL/L (3.5-5.3); SODIUM, SERUM 131 MMOL/L (135-148); TOTAL PROTEIN 10.3 G/DL (6.0-8.5)
[2016-12-04 17:42] LABS: PHOSPHORUS, SERUM 4.1 MG/DL (2.5-4.5); PREALBUMIN 19.5 MG/DL (17.0-43.0); TRIGLYCERIDE 202 MG/DL (< 150)
[2016-12-05 04:52] LABS: BASOPHILS 0.3 %; BASOPHILS ABSOLUTE 0.03 10/3/uL (0.0-0.16); EOSINOPHILS 0.9 %; EOSINOPHILS ABSOLUTE 0.11 10/3/uL (0.0-0.53); HEMATOCRIT 30.5 % (40.0-51.0); HEMOGLOBIN 10.1 g/dL (13.6-17.8); IMMATURE GRANULOCYTES 0.3 %; IMMATURE GRANULOCYTES ABSOLUTE 0.04 10/3/uL (0.0-0.11); LYMPHOCYTES 13.9 %; LYMPHOCYTES ABSOLUTE 1.62 10/3/uL (0.67-4.30); MEAN CORPUS HGB CONC 33.1 g/dL (32.0-36.0); MEAN CORPUSCULAR HEMOGLOB 28.8 pg (26.0-34.0); MEAN CORPUSCULAR VOLUME 86.9 fL (80-100); MEAN PLATELET VOLUME 9.2 fL (9.2-13.0); MONOCYTES 8.4 %; MONOCYTES ABSOLUTE 0.98 10/3/uL (0.21-1.20); NEUTROPHILS 76.2 %; NEUTROPHILS ABSOLUTE 8.85 10/3/uL (2.02-8.40); PLATELET COUNT 645 10/3/uL (150-400); RBC DISTRIBUTION WIDTH 14.3 % (12.0-16.0); RED CELL COUNT 3.51 10/6/uL (4.7-6.1); WHITE BLOOD CELLS 11.6 10/3/uL (4.5-10.5)
[2016-12-05 04:55] LABS: MANUAL DIFF NO %
[2016-12-05 05:06] LABS: BUN (BLOOD UREA NITROGEN) 25 MG/DL (6-23); CHLORIDE, SERUM 94 MMOL/L (96-112); CO2 (CARBON DIOXIDE) 27 MMOL/L (24-34); CREATININE 1.21 MG/DL (0.70-1.30); GFR AFRICAN AMERICAN 76 ML/MIN (>=60); GFR NON AFRICAN AMERICAN 66 ML/MIN (>=60); PHOSPHORUS, SERUM 3.8 MG/DL (2.5-4.5); POTASSIUM, SERUM 3.9 MMOL/L (3.5-5.3); SODIUM, SERUM 133 MMOL/L (135-148)
[2016-12-05 05:16] LABS: CALCIUM, SERUM 9.3 MG/DL (8.5-10.4); GLUCOSE, SERUM 120 MG/DL (60-99)
[2016-12-06 04:10] LABS: BASOPHILS 0.3 %; BASOPHILS ABSOLUTE 0.03 10/3/uL (0.0-0.16); EOSINOPHILS 1.3 %; EOSINOPHILS ABSOLUTE 0.13 10/3/uL (0.0-0.53); HEMATOCRIT 29.8 % (40.0-51.0); HEMOGLOBIN 9.8 g/dL (13.6-17.8); IMMATURE GRANULOCYTES 0.5 %; IMMATURE GRANULOCYTES ABSOLUTE 0.05 10/3/uL (0.0-0.11); LYMPHOCYTES 15.6 %; LYMPHOCYTES ABSOLUTE 1.57 10/3/uL (0.67-4.30); MEAN CORPUS HGB CONC 32.9 g/dL (32.0-36.0); MEAN CORPUSCULAR HEMOGLOB 28.9 pg (26.0-34.0); MEAN CORPUSCULAR VOLUME 87.9 fL (80-100); MEAN PLATELET VOLUME 9.1 fL (9.2-13.0); MONOCYTES 9.3 %; MONOCYTES ABSOLUTE 0.94 10/3/uL (0.21-1.20); NEUTROPHILS ABSOLUTE 7.34 10/3/uL (2.02-8.40); PLATELET COUNT 584 10/3/uL (150-400); RBC DISTRIBUTION WIDTH 14.3 % (12.0-16.0); RED CELL COUNT 3.39 10/6/uL (4.7-6.1); WHITE BLOOD CELLS 10.1 10/3/uL (4.5-10.5)
[2016-12-06 04:21] LABS: MANUAL DIFF NO %
[2016-12-06 04:24] LABS: BUN (BLOOD UREA NITROGEN) 32 MG/DL (6-23); CALCIUM, SERUM 9.4 MG/DL (8.5-10.4); CHLORIDE, SERUM 97 MMOL/L (96-112); CO2 (CARBON DIOXIDE) 26 MMOL/L (24-34); CREATININE 0.93 MG/DL (0.70-1.30); GFR AFRICAN AMERICAN 105 ML/MIN (>=60); GFR NON AFRICAN AMERICAN 90 ML/MIN (>=60); GLUCOSE, SERUM 113 MG/DL (60-99); POTASSIUM, SERUM 3.8 MMOL/L (3.5-5.3); SODIUM, SERUM 135 MMOL/L (135-148)
[2016-12-06 07:33] LABS: PHOSPHORUS, SERUM 3.7 MG/DL (2.5-4.5)
[2016-12-07 07:06] LABS: BUN (BLOOD UREA NITROGEN) 33 MG/DL (6-23); CALCIUM, SERUM 9.3 MG/DL (8.5-10.4); CHLORIDE, SERUM 98 MMOL/L (96-112); CO2 (CARBON DIOXIDE) 24 MMOL/L (24-34); CREATININE 0.99 MG/DL (0.70-1.30); GFR AFRICAN AMERICAN 97 ML/MIN (>=60); GFR NON AFRICAN AMERICAN 84 ML/MIN (>=60); GLUCOSE, SERUM 123 MG/DL (60-99); PHOSPHORUS, SERUM 3.7 MG/DL (2.5-4.5); POTASSIUM, SERUM 3.7 MMOL/L (3.5-5.3); SODIUM, SERUM 133 MMOL/L (135-148); TRIGLYCERIDE 243 MG/DL (< 150)
[2016-12-08 06:48] LABS: CALCIUM, SERUM 9.4 MG/DL (8.5-10.4); CHLORIDE, SERUM 103 MMOL/L (96-112); CO2 (CARBON DIOXIDE) 21 MMOL/L (24-34); GFR AFRICAN AMERICAN 96 ML/MIN (>=60); GFR NON AFRICAN AMERICAN 83 ML/MIN (>=60); GLUCOSE, SERUM 115 MG/DL (60-99); SODIUM, SERUM 134 MMOL/L (135-148)
[2016-12-08 06:49] LABS: BUN (BLOOD UREA NITROGEN) 28 MG/DL (6-23); POTASSIUM, SERUM 4.4 MMOL/L (3.5-5.3)
[2016-12-09 06:46] LABS: BUN (BLOOD UREA NITROGEN) 27 MG/DL (6-23); CHLORIDE, SERUM 99 MMOL/L (96-112); CO2 (CARBON DIOXIDE) 25 MMOL/L (24-34); CREATININE 0.95 MG/DL (0.70-1.30); GFR AFRICAN AMERICAN 102 ML/MIN (>=60); GFR NON AFRICAN AMERICAN 88 ML/MIN (>=60); GLUCOSE, SERUM 125 MG/DL (60-99); PHOSPHORUS, SERUM 2.9 MG/DL (2.5-4.5); POTASSIUM, SERUM 3.7 MMOL/L (3.5-5.3); SODIUM, SERUM 134 MMOL/L (135-148)
[2016-12-09] MEDS ORDERED: SUCR PO (09:27)
[2016-12-09] MEDS ORDERED: REG PO (09:27)
[2016-12-09] MEDS ORDERED: PROTONIX PO (09:28)
== END 2016-12-09 13:12 | disposition home or self-care (01) | DRG 391 ==
LOC: CDU1 11:57 → 5SO 12-06 14:40
PROVIDERS: Surgery
PROC: 02HV33Z Insertion of Infusion Device into Superior Vena Cava, Percutaneous Approach (ICD-10-PCS; principal; 2016-12-08)
PROC: 4A02X4A Measurement of Cardiac Electrical Activity, Guidance, External Approach (ICD-10-PCS; 2016-12-08)
PROC: 3E0436Z Introduction of Nutritional Substance into Central Vein, Percutaneous Approach (ICD-10-PCS; 2016-12-08)
DX: K21.9 Gastro-esophageal reflux disease without esophagitis (principal); N17.0 Acute kidney failure with tubular necrosis; E46 Unspecified protein-calorie malnutrition; E86.0 Dehydration; I10 Essential (primary) hypertension; M06.9 Rheumatoid arthritis, unspecified; Z79.52 Long term (current) use of systemic steroids; Z90.49 Acquired absence of other specified parts of digestive tract; Z83.3 Family history of diabetes mellitus; Z87.891 Personal history of nicotine dependence; Z98.0 Intestinal bypass and anastomosis status; Z79.899 Other long term (current) drug therapy; R63.0 Anorexia; Z68.23 Body mass index [BMI] 23.0-23.9, adult
CPT/HCPCS: 36569; 74249; 80048; 80053; 82330; 82962; 83735; 84100; 84134; 84478; 85025; A9270-GY; C1751; J2765; J3475

== ENCOUNTER 2016-12-17 13:34 | Inpatient (IN) | payer BC ==
--- NOTE | ~2016-12-17 | CN ---
Consultation Report [facility] [address] [place]. [address] NAME: LAURIE HUDSON : 56 STATUS : ADM IN [facility]#: [id number] AGE: 56 ADM/REG DATE : 12/17/16 MR#: [id number] REPORT SERV DATE: 12/17/16 DICTATED BY: LEVI CAAL DATE: 12/17/16 REPORT STATUS : Draft TRANSCRIBED BY: MODTelma DATE: 12/17/16 GI CONSULTATION DATE OF CONSULTATION: 12/17/2016 REASON FOR CONSULTATION: Evaluation and management of anorexia, diarrhea, nausea, and reflux. HISTORY OF PRESENT ILLNESS: Mr. Hudson is a very pleasant 56-year-old, male patient, who is known to Dr. Lele Hawley in the outpatient setting. He presented to [facility] as a direct admission from Dr. Lee' office today secondary to nausea, anorexia, and diarrhea. He has a pertinent past medical history of recent distal gastrectomy with Billroth II anastomosis in October of this year secondary to large GIST tumor. 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 Lee with discharge being 11/05/2016. We saw him on 12/06/2016 secondary to nausea, reflux, and anorexia. He was admitted and left over that weekend after IV hydration, and adjustment of his medications. During his hospital stay in November, he had an upper GI series/small bowel follow-through which showed findings of status post partial gastrectomy, widely patent gastrojejunostomy. No extravasation of contrast and severe spontaneous GERD to the level of the upper thorax. He states that since being home, he has been able to tolerate any solid foods. He has no appetite. He has lost roughly 40 pounds since his initial surgery. He states that his nausea has improved, however he still has profound reflux. He states that it comes up into the back of his throat and subsequently, he has to cough it up and/or vomit it up. His states that over this past weekend, on Friday, he ate a small amount of spaghetti and that is the first solid food that he has had in several weeks. However since that time, he has had profound diarrhea. She states he went 10 times yesterday. He has already went 7 times today. It is described as watery, nonbloody. Secondary to all of this, he was sent in for a further evaluation. I have discussed this with Dr. Lee' nurse, Fang. At this point in time, we will hold off on endoscopy, obtain stool studies, hydrate the patient, and adjust his medications. I did discuss with the patient and his at bedside, he will potentially need upper endoscopy at some point in this hospitalization. They are agreeable to proceed with that if felt warranted. I did discuss risks, benefits, alternatives, and complications with him to include, but not limited to risk of bleeding, perforation, infection, reaction to medication, as well as cardiac and pulmonary side effects. They are agreeable to proceed. PAST MEDICAL HISTORY: Positive for large GIST tumor, status post distal gastrectomy with Billroth II anastomosis on 10/24/2016. Then, with a readmission with a surgical abdomen, duodenal stump leak, peritonitis which required surgery with duodenal stump placement of duodenostomy tube and drainage of the abdominal cavity with Ric patch closure of his duodenal stump, steroid-dependent arthritis, hypertension, GERD, legionnaires pneumonia, dehydration, and anorexia. Consultation Report [place] [id number] [facility] [place]. [address] NAME: LAURIE HUDSON : 56 STATUS : ADM IN [facility]#: [id number] AGE: 56 ADM/REG DATE : 12/17/16 MR#: [id number] REPORT SERV DATE: 12/17/16 DICTATED BY: LEVI CAAL DATE: 12/17/16 REPORT STATUS : Draft TRANSCRIBED BY: ROSELYN DATE: 12/17/16 FAMILY HISTORY: Noncontributory from a gastrointestinal standpoint. SOCIAL HISTORY: Past tobacco. Past alcohol. No illicits. ALLERGIES: NONE. MEDICATIONS: Norvasc, hydrochlorothiazide, Apresoline, multivitamin, Percocet, Carafate, Protonix, and Reglan. REVIEW OF SYSTEMS: A 10-point review of systems has been obtained with pertinent positives being addressed in the history of present illness. PERTINENT LABORATORY DATA: There is also no laboratory data for review at my time of rounding. PHYSICAL EXAMINATION: VITAL SIGNS: No current vital signs are available at this point in time. NEURO: Reveals an alert, male, resting in bed. No obvious focal deficits. GENERAL: Cooperative. No apparent distress. Awake, alert, and oriented x3. HEAD, EARS, EYES, NOSE, AND THROAT: Anicteric. Pupils equal, round, and reactive to light and accommodation. Normocephalic and atraumatic. NECK: No JVD. No palpable nodes. Supple. LUNGS: Clear anteriorly with normal respiratory effort exhibited. Equal expansion. Diminished bilaterally in the bases. CARDIOVASCULAR SYSTEM: Regular rate and rhythm. S1 and S2. No murmurs, rubs, gallops, S3, or S4 appreciated. ABDOMEN: Soft, flat. No tenderness to palpation. He has a right upper quadrant dressing covered. Underneath this, is a capped off T-tube. EXTREMITIES: No edema. Normal distal pulses. SKIN: Warm, dry, and intact. ASSESSMENT/PLAN: 1. Anorexia with weight loss/progressive. 2. Severe reflux. 3. Recent partial gastrectomy secondary to gastrointestinal stromal tumor with postoperative complications for diarrhea. PLAN: 1. We will start him on a Protonix drip after an 80 mg Protonix bolus. 2. Pepcid. 3. Marinol 5 mg p.o. b.i.d. 4. Stool studies. 5. Questionable EGD at some point. Consultation Report [address] [place]. [address] NAME: LAURIE HUDSON : 56 STATUS : ADM IN [facility]#: [id number] AGE: 56 ADM/REG DATE : 12/17/16 MR#: [id number] REPORT SERV DATE: 12/17/16 DICTATED BY: LEVI CAAL DATE: 12/17/16 REPORT STATUS : Draft TRANSCRIBED BY: ROSELYN DATE: 12/17/16 6. Anti-reflux precautions. 7. Scheduled Zofran. We will follow. BIBI/ROSELYN Levi KATHRYN Maria / [id number] CC: Austin Schulte III, M.D.
--- NOTE | ~2016-12-17 | DS ---
Discharge Summary [facility] [address] [place]. [address] NAME: LAURIE VOGEL : 56 STATUS : DIS IN PAT#: [id number] AGE: 56 ADM/REG DATE : 12/17/16 MR#: [id number] REPORT SERV DATE: 12/31/16 DICTATED BY: STEPHANIE MOCK III DATE: 12/30/16 REPORT STATUS : Draft TRANSCRIBED BY: ROSELYN DATE: 12/30/16 Data Collection from hospitalization DISCHARGE DIAGNOSIS(ES): 1. C. difficile colitis-resolving. 2. Hypertension. 3. Large GIST tumor, status post distal gastrectomy with Billroth II anastomosis. 4. Steroid-dependent arthritis. 5. Gastroesophageal reflux disease. 6. History of legionnaires pneumonia. 7. Former tobacco. CONSULTATIONS: KATHRYN Edward. PROCEDURES PERFORMED: None. MEDICATIONS: Exforge one tablet every morning, Marinol 5 mg twice a day as needed, hydrochlorothiazide 25 mg every morning, Centrum one tablet daily, Percocet 7.5/325 one tablet three times a day as needed, Protonix 40 mg daily, and Zantac 300 mg at bedtime. CONDITION AT DISCHARGE: Stable. DISPOSITION: The patient was discharged home on a soft diet with activities as instructed. He will follow up with me 12/25/[address] Lele Hawley as needed. HOSPITAL COURSE: This is a 56-year-old man who presented to the hospital emergently with evidence for severe diarrhea and dehydration. He had complained of a three to four-day history of severe diarrhea. He describes crampy diffuse lower abdominal pain that was associated with profuse watery diarrhea. The patient was having about seven to ten bowel movements per day. This was associated with nausea and food intolerance. He had a weight loss of five to ten pounds. He presented to my office on the day of this admission and was found to be extremely dehydrated and weak. It was felt that the patient may have C. difficile colitis. He was admitted to the hospital at this time for further evaluation and treatment. Upon admission, stool cultures were obtained. He was started on parenteral fluids and bowel rest. He was seen by Riley Maria for evaluation and management of anorexia, diarrhea, nausea, and reflux. He was started on a Protonix drip after a Protonix bolus. Pepcid was given as well as Marinol. Stool studies were going to be obtained. It was felt that he may possibly need an EGD at some point. Anti-reflux precautions would be provided. Scheduled Zofran was being given. Following day, C. difficile study was positive. He said he felt better overall. He has less diarrhea. He was wanting to eat more. He said this was the first time he has had actually had an appetite. His diet was going to be advanced as tolerated. On , his abdomen was soft and nontender. White count was 10. He said he felt much better. He had less diarrhea. His diet was advanced. Discharge planning was performed. He still has some reflux, but it was not as bad. Proton pump inhibitor was adjusted. Pepcid was changed to oral dosing. Marinol was continued. On 12/20/2016, the patient felt well and wanted to go home. He was eating well. His diarrhea had resolved. Discharge Summary [address] [address] NAME: LAURIE VOGEL : 56 STATUS : DIS IN PAT#: [id number] AGE: 56 ADM/REG DATE : 12/17/16 MR#: [id number] REPORT SERV DATE: 12/31/16 DICTATED BY: STEPHANIE MOCK III DATE: 12/30/16 REPORT STATUS : Draft TRANSCRIBED BY: ROSELYN DATE: 12/30/16 He was tolerating a soft diet. Discharge instructions were given. Due to his improved and stable condition, he was discharged home with the above-stated instructions. Information collected by: Viridiana Jessica I submit the above information as my discharge summary. TG/MODL Stephanie Mock III, M.D. / [id number] CC: Austin Schulte III, M.D. Destin Griffin-Trussell, FNP
--- NOTE | ~2016-12-17 | HP ---
History And Physical [id number] [place]. [address] NAME: LAURIE VOGEL : 56 STATUS : ADM IN [facility]#: [id number] AGE: 56 ADM/REG DATE : 12/17/16 MR#: [id number] REPORT SERV DATE: 12/18/16 DICTATED BY: STEPHANIE LEE III DATE: 12/18/16 REPORT STATUS : Draft TRANSCRIBED BY: MODTelma DATE: 12/18/16 DATE OF ADMISSION: 12/17/2016 HISTORY OF PRESENT ILLNESS: This 56-year-old male was admitted to the hospital emergently with evidence for severe diarrhea and dehydration. The patient complains of a 3 to 4 day history of severe diarrhea. He describes crampy diffuse lower abdominal pain. This has been associated with profuse watery diarrhea, with the patient having some 7 to 10 bowel movements daily. This has been associated with nausea and food intolerance and weight loss of 5 to 10 pounds. The patient presented to my office on the day of admission. He was found to be extremely dehydrated and weak. It was felt that emergent admission to the hospital is indicated. It was felt that the patient might have C. difficile colitis. 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 The patient's path report showed clear margins. MEDICATIONS: As per medication list. REVIEW OF SYSTEMS: As above. PHYSICAL EXAMINATION: OBJECTIVE PHYSICAL EXAM: GENERAL: This is a male, in no acute distress. He appears very dehydrated. Mucous membranes are dry. The patient is alert and oriented. HEENT: Unremarkable. NEUROLOGIC: Cranial nerves 2 through 12 are normal. LUNGS: Clear. CARDIAC: Normal. ABDOMEN: Soft and nontender. The patient has a duodenal T-tube in place which was placed at the time of the surgery. EXTREMITIES: Unremarkable. His mucous membranes again are dry and his skin turgor is loose. ASSESSMENT: A 56-year-old male with severe diarrhea associated with nausea and food intolerance, dehydration and weight loss, of concern for possible Clostridium difficile colitis. PLAN: The patient will be admitted to the hospital emergently. He will be started on parenteral fluids and bowel rest. I have requested stool cultures. Appropriate antibiotics will be started if the stool cultures confirm C. difficile colitis. This plan has been explained to the patient with his questions being answered. He understands and agrees to this as planned. History And Physical [address] [place]. [address] NAME: LAURIE VOGEL : 56 STATUS : ADM IN [facility]#: [id number] AGE: 56 ADM/REG DATE : 12/17/16 MR#: [id number] REPORT SERV DATE: 12/18/16 DICTATED BY: STEPHANIE LEE III DATE: 12/18/16 REPORT STATUS : Draft TRANSCRIBED BY: ROSELYN DATE: 12/18/16 Onelia/ROSELYN Stephanie Lee III, M.D. / [id number] CC: Austin Schulte III, M.D.
[~2016-12-17 13:34] MED LIST changes: +PROTONIX PO; +REG PO; +SUCR PO
[2016-12-17 14:53] LABS: BASOPHILS 0.1 %; BASOPHILS ABSOLUTE 0.02 10/3/uL (0.0-0.16); EOSINOPHILS 0.4 %; EOSINOPHILS ABSOLUTE 0.07 10/3/uL (0.0-0.53); HEMATOCRIT 31.4 % (40.0-51.0); HEMOGLOBIN 10.5 g/dL (13.6-17.8); IMMATURE GRANULOCYTES 0.2 %; IMMATURE GRANULOCYTES ABSOLUTE 0.04 10/3/uL (0.0-0.11); LYMPHOCYTES 9.5 %; LYMPHOCYTES ABSOLUTE 1.59 10/3/uL (0.67-4.30); MANUAL DIFF NO %; MEAN CORPUS HGB CONC 33.4 g/dL (32.0-36.0); MEAN CORPUSCULAR HEMOGLOB 28.8 pg (26.0-34.0); MONOCYTES 4.9 %; MONOCYTES ABSOLUTE 0.82 10/3/uL (0.21-1.20); NEUTROPHILS 84.9 %; NEUTROPHILS ABSOLUTE 14.22 10/3/uL (2.02-8.40); PLATELET COUNT 529 10/3/uL (150-400); RBC DISTRIBUTION WIDTH 14.5 % (12.0-16.0); RED CELL COUNT 3.65 10/6/uL (4.7-6.1); WHITE BLOOD CELLS 16.8 10/3/uL (4.5-10.5)
[2016-12-17 15:08] LABS: ALBUMIN 2.6 G/DL (3.5-5.0); CALCIUM, SERUM 9.7 MG/DL (8.5-10.4); CHLORIDE, SERUM 96 MMOL/L (96-112); CO2 (CARBON DIOXIDE) 29 MMOL/L (24-34); CREATININE 0.97 MG/DL (0.70-1.30); GFR AFRICAN AMERICAN 99 ML/MIN (>=60); GFR NON AFRICAN AMERICAN 86 ML/MIN (>=60); GLUCOSE, SERUM 115 MG/DL (60-99); POTASSIUM, SERUM 3.4 MMOL/L (3.5-5.3); SGOT(AST) 7 U/L (5-40); SGPT(ALT) 30 U/L (5-65); SODIUM, SERUM 134 MMOL/L (135-148); TOTAL BILIRUBIN 0.3 MG/DL (0-1.2); TOTAL PROTEIN 8.3 G/DL (6.0-8.5)
[2016-12-17 15:14] LABS: A/G RATIO 0.5 (0.7-1.9); ALKALINE PHOSPHATASE 307 U/L (45-117); BUN (BLOOD UREA NITROGEN) 14 MG/DL (6-23); GLOBULIN 5.7 G/DL (2.5-4.1)
[2016-12-17 15:57] LABS: PREALBUMIN 14.9 MG/DL (17.0-43.0)
[2016-12-17 15:58] LABS: DIRECT BILIRUBIN < 0.1 MG/DL (0.0-0.4); INDIRECT BILIRUBIN(NOT ORDER) 0.2 MG/DL (0.1-0.9)
[2016-12-17] MEDS ORDERED: EXFORGE1 TA3 PO (16:44)
[2016-12-17] MEDS ORDERED: PROTONIX PO (16:46)
[2016-12-17] MEDS ORDERED: HYDROCHLOROT25 MG PO (16:47)
[2016-12-17] MEDS ORDERED: SUCR PO (16:47)
[2016-12-17] MEDS ORDERED: CENTRUM PO (16:48)
[2016-12-18 06:48] LABS: BASOPHILS 0.2 %; BASOPHILS ABSOLUTE 0.03 10/3/uL (0.0-0.16); EOSINOPHILS 1.7 %; EOSINOPHILS ABSOLUTE 0.21 10/3/uL (0.0-0.53); HEMATOCRIT 27.7 % (40.0-51.0); HEMOGLOBIN 9.1 g/dL (13.6-17.8); IMMATURE GRANULOCYTES 0.2 %; IMMATURE GRANULOCYTES ABSOLUTE 0.03 10/3/uL (0.0-0.11); LYMPHOCYTES 12.8 %; LYMPHOCYTES ABSOLUTE 1.62 10/3/uL (0.67-4.30); MANUAL DIFF NO %; MEAN CORPUS HGB CONC 32.9 g/dL (32.0-36.0); MEAN CORPUSCULAR HEMOGLOB 28.3 pg (26.0-34.0); MEAN CORPUSCULAR VOLUME 86.3 fL (80-100); MEAN PLATELET VOLUME 8.8 fL (9.2-13.0); MONOCYTES 5.9 %; MONOCYTES ABSOLUTE 0.75 10/3/uL (0.21-1.20); NEUTROPHILS 79.2 %; NEUTROPHILS ABSOLUTE 10.04 10/3/uL (2.02-8.40); PLATELET COUNT 479 10/3/uL (150-400); RBC DISTRIBUTION WIDTH 14.4 % (12.0-16.0); RED CELL COUNT 3.21 10/6/uL (4.7-6.1); WHITE BLOOD CELLS 12.7 10/3/uL (4.5-10.5)
[2016-12-18 07:02] LABS: CHLORIDE, SERUM 100 MMOL/L (96-112); CO2 (CARBON DIOXIDE) 28 MMOL/L (24-34); CREATININE 0.98 MG/DL (0.70-1.30); GFR AFRICAN AMERICAN 98 ML/MIN (>=60); GFR NON AFRICAN AMERICAN 85 ML/MIN (>=60); GLUCOSE, SERUM 132 MG/DL (60-99); POTASSIUM, SERUM 3.9 MMOL/L (3.5-5.3); SODIUM, SERUM 135 MMOL/L (135-148)
[2016-12-18 07:03] LABS: BUN (BLOOD UREA NITROGEN) 10 MG/DL (6-23)
[2016-12-19 05:54] LABS: BASOPHILS 0.3 %; BASOPHILS ABSOLUTE 0.03 10/3/uL (0.0-0.16); EOSINOPHILS 2.9 %; HEMATOCRIT 25.4 % (40.0-51.0); HEMOGLOBIN 8.3 g/dL (13.6-17.8); IMMATURE GRANULOCYTES 0.2 %; IMMATURE GRANULOCYTES ABSOLUTE 0.02 10/3/uL (0.0-0.11); LYMPHOCYTES 14.6 %; LYMPHOCYTES ABSOLUTE 1.51 10/3/uL (0.67-4.30); MEAN CORPUS HGB CONC 32.7 g/dL (32.0-36.0); MEAN CORPUSCULAR HEMOGLOB 28.3 pg (26.0-34.0); MEAN CORPUSCULAR VOLUME 86.7 fL (80-100); MONOCYTES 8.2 %; MONOCYTES ABSOLUTE 0.85 10/3/uL (0.21-1.20); NEUTROPHILS 73.8 %; PLATELET COUNT 458 10/3/uL (150-400); RBC DISTRIBUTION WIDTH 14.5 % (12.0-16.0); RED CELL COUNT 2.93 10/6/uL (4.7-6.1); WHITE BLOOD CELLS 10.3 10/3/uL (4.5-10.5)
[2016-12-19 06:02] LABS: MANUAL DIFF NO %
[2016-12-19 06:09] LABS: CHLORIDE, SERUM 103 MMOL/L (96-112); CO2 (CARBON DIOXIDE) 24 MMOL/L (24-34); CREATININE 0.91 MG/DL (0.70-1.30); GFR AFRICAN AMERICAN 107 ML/MIN (>=60); GFR NON AFRICAN AMERICAN 93 ML/MIN (>=60); GLUCOSE, SERUM 108 MG/DL (60-99); POTASSIUM, SERUM 4.1 MMOL/L (3.5-5.3); SODIUM, SERUM 136 MMOL/L (135-148)
[2016-12-19 06:11] LABS: BUN (BLOOD UREA NITROGEN) 5 MG/DL (6-23)
[2016-12-20] MEDS ORDERED: ZANTAC300 MG PO (09:22)
[2016-12-20] MEDS ORDERED: PERCOCET 7.5/321 TAB PO (09:23)
[2016-12-20] MEDS ORDERED: MARI5 PO (09:24)
== END 2016-12-20 10:40 | disposition home or self-care (01) | DRG 372 ==
LOC: 5SO 13:34
PROVIDERS: Surgery
DX: A04.7 Enterocolitis due to Clostridium difficile (principal); E44.0 Moderate protein-calorie malnutrition; E86.0 Dehydration; Z98.890 Other specified postprocedural states; Z90.49 Acquired absence of other specified parts of digestive tract; Z90.3 Acquired absence of stomach [part of]; Z87.891 Personal history of nicotine dependence; Z79.899 Other long term (current) drug therapy; Z68.21 Body mass index [BMI] 21.0-21.9, adult
CPT/HCPCS: 80048; 80053; 82248; 83690; 84134; 85025; 87328; 87329; 87493; 87493-59; 89055; A9270-GY; C9113; J2405